=== PATIENT | male | born 1960 | race Caucasian/White ===

== ENCOUNTER 2021-10-13 12:52 | Inpatient (IN) | payer MEDICARE, OTHER ==
[~2021-10-13] VITALS: Ht 172.7 cm; Wt 77.1 kg
[2021-10-13] MEDS ORDERED: LORAZEPAM 2 MG/1 ML VIAL IM ONE (13:15)
--- NOTE | 2021-10-13 13:15 | NUR ---
pt restless, yelling, incomprehensible, requesting ativan. aware.
[2021-10-13] MEDS ORDERED: LORAZEPAM 2 MG/1 ML VIAL ONE (13:24)
--- NOTE | 2021-10-13 13:30 | NUR ---
First contact with pt. Received pt is room 3 pending medical clearance for admission to MHU. Pt is agitated and yelling out loud.
--- NOTE | 2021-10-13 13:35 | NUR ---
Called nursing chimney supervisor brick for 1:1 sitter as pt is on a 5150 Hold, no sitter available. Asked nursing chimney supervisor brick to call security for 1:1 observation if available.
[2021-10-13] MEDS ORDERED: OLANZAPINE 10 MG VIAL IM ONE ×2 (14:00→14:09)
[2021-10-13 14:07] LABS: MEAN CORPUSCULAR HEMOGLOBIN 28.8 uug (23.8-33.4); MEAN CORPUSCULAR VOLUME 84.1 fL (73.0-96.2); PLATELET COUNT (AUTO) 241 K/uL (152-348)
[2021-10-13 14:13] LABS: CARBON DIOXIDE 30 mmol/L (21-32); CHLORIDE 99 mmol/L (98-107); CREATININE 1.2 mg/dL (0.6-1.3); GLUCOSE 181 mg/dL (74-106); UREA NITROGEN, BLOOD 20 mg/dL (7-18)
--- NOTE | 2021-10-13 14:16 | NUR ---
PT ARRIVED WITH SUPPORT DBA, WITH ONLY THE 5150 HOLD; NO FURTHER INFO ON MED HX, NOR MEDS; PT HIMSELF IS A POOR HISTORIAN AT THIS TIME.
[2021-10-13 14:19] LABS: *BILIRUBIN,URIN 1+ (NEGATIVE); *BLOOD, URINE NEGATIVE (NEGATIVE); *CLARITY,URINE CLEAR (CLEAR); *COLOR,URINE YELLOW (YELLOW); *KETONES,URINE 1+ (NEGATIVE); *UROBILINOGEN,URINE 0.2 E.U./dl (NORMAL); LEUKOCYTE ESTERASE ,URINE NEGATIVE (NEGATIVE); NITRITE, URINE NEGATIVE (NEGATIVE); PH,URINE 5.5 (5.0-8.0); UGLUCOSE NEGATIVE (NEGATIVE)
[2021-10-13 14:21] LABS: ALANINE AMINOTRANSFERASE 35 U/L (16-63); ALKALINE PHOSPHATASE 73 U/L (50-136); ASPARTATE AMINOTRANSFERASE 14 U/L (15-37); BILIRUBIN,DIRECT 0.2 mg/dL (0.0-0.2); BILIRUBIN,TOTAL 0.6 mg/dL (0.2-1.0); TOTAL PROTEIN, SERUM 6.8 g/dL (6.4-8.2)
[2021-10-13 14:22] LABS: ETHANOL < 3 MG/DL (0-0)
[2021-10-13 14:23] LABS: ACETAMINOPHEN < 2.0 ug/mL (10-30)
[2021-10-13 14:26] LABS: *AMPHETAMINE, URINE NEGATIVE (NEGATIVE); *CANNABINOID, URINE NEGATIVE (NEGATIVE); *COCCAINE, URINE NEGATIVE (NEGATIVE); *OPIATE, URINE NEGATIVE (NEGATIVE); *PHENCYCLIDINE SCREEN,URINE NEGATIVE (NEGATIVE)
[2021-10-13 14:43] LABS: THYROID STIMULATING HORMONE 0.337 mIU/mL (0.358-3.740)
--- NOTE | 2021-10-13 14:48 | NUR ---
Pt to CT via YUE galvan noted.
--- NOTE | 2021-10-13 15:40 | NUR ---
Per pt is medically clear for admission to MHU. SBAR report given to Jose M in MHU via telephone.
[2021-10-13] MEDS ORDERED: POTASSIUM BICARBONATE/CIT AC 25 MEQ TABLET.EFF PO ONE (16:00)
--- NOTE | 2021-10-13 16:05 | NUR ---
Pt trans to MHU, NAD noted.
[2021-10-13] MEDS ORDERED: POTASSIUM BICARBONATE/CIT AC 25 MEQ TABLET.EFF ONE (16:07)
--- NOTE | 2021-10-13 16:20 | NUR ---
GPS: Nursing Notes: Admitting Notes: Patient is admitting to MHU on 5150 DTS & GD due to endorsing suicidal ideations, reports not eating and sleeping for several days, noncompliance with psychotic medications, unable to verbalize plan for safety and/or self care: food, clothing and/or [place] [facility]. On face to face assessment, patient is A/Ox2, labile, loud and pressured speech at times, depressed mood and angry affect, gets easily irritable when questioned by staff, poor historian, unable to formulate a viable plan for self care, denies SI/HI, unkempt appearance, poor grooming, oriented to the unit, admitting package given to the patient, continue to monitor for safety, Dr. De La Rosa and Dr. Shannon informed of admission, continue with treatment plan.
[2021-10-13] MEDS ORDERED: MAGNESIUM HYDROXIDE 30 ML LIQUID UDC PO PRN (16:45)
[2021-10-13] MEDS ORDERED: MAG HYDROX/AL HYDROX/SIMETH 30 ML LIQUID UDC PO PRN (16:45)
[2021-10-13] MEDS ORDERED: BLOOD SUGAR DIAGNOSTIC 1 EACH STRIP VI ONE (16:45)
[2021-10-13 22:10] VITALS: BP 114/58
[2021-10-14 06:41] LABS: HEMATOCRIT 37.1 % (36.7-47.1); MEAN CORPUSCULAR HEMOGLOBIN 29.2 uug (23.8-33.4); MEAN CORPUSCULAR VOLUME 84.4 fL (73.0-96.2); PLATELET COUNT (AUTO) 216 K/uL (152-348)
[2021-10-14] MEDS: CLONAZEPAM 0.5 MG TABLET PO PRN ×2 (07:26→15:19)
[2021-10-14 07:30] LABS: BILIRUBIN,TOTAL 0.6 mg/dL (0.2-1.0); MAGNESIUM 2.3 mg/dL (1.8-2.4); PHOSPHOROUS 3.1 mg/dL (2.5-4.9); POTASSIUM 3.5 mmol/L (3.5-5.1); TOTAL PROTEIN, SERUM 6.5 g/dL (6.4-8.2)
[2021-10-14 07:53] VITALS: BP 145/105
[2021-10-14 08:01] LABS: THYROID STIMULATING HORMONE 0.345 mIU/mL (0.358-3.740)
[2021-10-14] MEDS: OLANZAPINE 5 MG TABLET PO SCH ×2 (10:14→17:59)
[2021-10-14] MEDS: DIVALPROEX SPRINKLE 125 MG CAP.SPRINK PO SCH ×2 (10:14→20:53)
[2021-10-14] MEDS: PAROXETINE HCL 10 MG TABLET PO SCH (10:14)
[2021-10-14 15:16] VITALS: BP 156/88
[2021-10-14] MEDS ORDERED: MIRT-94 PO (17:19)
[2021-10-14] MEDS ORDERED: RISP4TAB4 PO (17:19)
[2021-10-14] MEDS ORDERED: FURO40TA5 PO (17:19)
[2021-10-14] MEDS ORDERED: ESCI20TA PO (17:19)
[2021-10-14] MEDS ORDERED: SITA100T PO (17:19)
[2021-10-14] MEDS ORDERED: AMLO10TA59 PO (17:19)
[2021-10-14] MEDS ORDERED: METF-442 PO (17:19)
[2021-10-14] MEDS ORDERED: BUSP15TA3 PO (17:19)
--- NOTE | 2021-10-14 18:17 | NUR ---
GPS: Nursing Notes: Destructive Behavior To Self: Patient is awake and responding to his name, poor impulse control, overly disruptive by constantly shouting, yelling, making bizarre noises when pacing on the hallway, gets easily anxious when questioned by staff, poor grooming, unkempt appearance, A/Ox2-3, resistant with nursing care, unable to formulate a viable plan for self care, continue with treatment plan.
[2021-10-14 20:09] VITALS: BP 142/78
[2021-10-15] MEDS: CLONAZEPAM 0.5 MG TABLET PO PRN ×2 (05:32→10:53)
--- NOTE | 2021-10-15 05:33 | NUR ---
PATIENT WAS NOTED PACING THE HALLWAY, MAKING BIZARRE NOISES, ANXIOUS AND UNABLE TO CALM HIMSELF DOWN. PATIENT WAS GIVEN CLONAZEPAM 0.5 MG PO PRN. WILL CONTINUE TO MONITOR.
--- NOTE | 2021-10-15 06:30 | NUR ---
patient was able to calm down after klonopine 0.5mg PO PRN. he noted in his bed resting. PO PRN was effective . will continue to monitor.
[2021-10-15 07:30] VITALS: BP 149/89
[2021-10-15] MEDS: FUROSEMIDE 40 MG TABLET PO SCH (09:03)
[2021-10-15] MEDS: DIVALPROEX SPRINKLE 125 MG CAP.SPRINK PO SCH ×2 (09:03→21:07)
[2021-10-15] MEDS: AMLODIPINE 10 MG TABLET PO SCH (09:04)
[2021-10-15] MEDS: OLANZAPINE 5 MG TABLET PO SCH ×2 (09:04→17:08)
[2021-10-15] MEDS: METFORMIN HCL 500 MG TABLET PO SCH ×2 (09:04→17:08)
[2021-10-15] MEDS: LINAGLIPTIN 5 MG TABLET PO SCH (09:04)
[2021-10-15] MEDS: PAROXETINE HCL 10 MG TABLET PO SCH (09:50)
--- NOTE | 2021-10-15 10:46 | NUR ---
MANUELA Initial Discharge Note: Per 5150 hold, pt is admitted to [facility] due to suicidal ideation, agitation, paranoia and not sleeping for several days. Per pt, pt is unaware if he wishes to return to his apartment where he resides alone [address] [place] [address] or be discharged to a half-way facility recommended by pt's MD. MANUELA contacted pt's sister, Leeanna and the number was disconnected. MANUELA will continue to work with pt, family and MD to ensure a safe and proper discharge plan for the pt.
--- NOTE | 2021-10-15 10:46 | NUR ---
MANUELA Admit Source: Per 5150 hold, pt is admitted to [facility] due to suicidal ideation, agitation, paranoia and not sleeping for several days. Per pt, pt is unaware if he wishes to return to his apartment where he resides alone [address] [place] [address] or be discharged to a long-term facility recommended by pt's MD. MANUELA contacted pt's sister, Leeanna and the number was disconnected. MANUELA will continue to work with pt, family and MD to ensure a safe and proper discharge plan for the pt.
--- NOTE | 2021-10-15 10:50 | NUR ---
Firearms Report: Toe Laster completed and submitted a [employer] firearms report for 5150 a danger to himself and grave disability certifications. A copy of report has been placed in patient chart.
--- NOTE | 2021-10-15 11:09 | NUR ---
Patient is given Klonopin 0.5 mg for anxiety at 10:53am. Patient is pacing in the hallway, whining and crying, hyperverbal, restless, and agitated.
--- NOTE | 2021-10-15 15:55 | NUR ---
Received patient sleeping in his room. A/O X 2 to person, place. Pt. verbalizes being very anxious, pacing in the hallway, crying and whining. Pt. does not interact with others, isolative, and depressed. Compliant with medications. Ambulates without assistance. Self care. Pt. is encourage to vent feelings and emotions. Fall and safety precautions implemented.
[2021-10-15 16:00] VITALS: BP 137/79
[2021-10-15 20:00] VITALS: BP 121/69
--- NOTE | 2021-10-15 20:30 | NUR ---
RECEIVED PATIENT IN HIS ROOM IN BED. HE IS NOTED AWAKE A/O X 3. HE APPEARS DEPRESSED. MOOD IS LOW AFFECT IS BLUNTED. HE APPEARS TO RESPOND TO INTERNAL STIMULI. HE IS ALSO NOTED ISOLATIVE AND WITHDRAWN. HE DENIED SI/HI/VH/AH. HE IS A POOR HISTORIAN. HE IS REASSURED FOR HIS SAFETY. SAFETY, AND FALL PRECAUTION ARE IN PLACE. V/S STABLE. PATIENT WAS OFFERED PO FLUIDS AND SNACKS BUT HE REFUSED. HE CONTINUE COMPLIANT WITH MEDICATION REGIMENT AT THIS TIME. WILL CONTINUE TO MONITOR.
[2021-10-16] MEDS: TEMAZEPAM 7.5 MG CAPSULE PO PRN ×2 (01:46→23:41)
[2021-10-16] MEDS: CLONAZEPAM 0.5 MG TABLET PO PRN ×2 (06:14→14:04)
[2021-10-16] MEDS: ACETAMINOPHEN 325 MG TABLET PO PRN (06:28)
--- NOTE | 2021-10-16 06:28 | NUR ---
PATIENT NOTED PACING THE HALLWAY, MUMBLING, ANXIOUS AND UNABLE TO CALM DOWN. HE WAS NOTED APOLOGETIC "I AM BOTHERING OTHER PATIENT". HE WAS REASSURED AND HE WAS GIVEN CLONAZEPAM 0.5MG PO PRN FOR ANXIETY AGITATION. HE WAS ALSO GIVEN TYLENOL 650MG PO PRN FOR SORE SHOULDER. WILL CONTINUE TO MONITOR.
[2021-10-16 07:30] VITALS: BP 142/82
[2021-10-16] MEDS: LINAGLIPTIN 5 MG TABLET PO SCH (08:18)
[2021-10-16] MEDS: PAROXETINE HCL 10 MG TABLET PO SCH (08:18)
[2021-10-16] MEDS: METFORMIN HCL 500 MG TABLET PO SCH ×2 (08:18→17:29)
[2021-10-16] MEDS: DIVALPROEX SPRINKLE 125 MG CAP.SPRINK PO SCH ×2 (08:18→21:23)
[2021-10-16] MEDS: FUROSEMIDE 40 MG TABLET PO SCH (08:19)
[2021-10-16] MEDS: AMLODIPINE 10 MG TABLET PO SCH (08:19)
[2021-10-16] MEDS: OLANZAPINE 2.5 MG TABLET PO SCH ×2 (08:23→17:29)
--- NOTE | 2021-10-16 14:55 | NUR ---
Received patient sleeping in his room. A/O X 2 -3 to person, place. Pt. is anxious, Klonopin 0.5 mg was given at 14:05. Pt. is isolative, withdrawn, makes bizarre sounds, cries while pacing in the hallway. Compliant with medications. Requires minimal assistance with ADL. Pt. needs to be redirected. Emotional support given. Fall and safety precautions implemented.
[2021-10-16 16:23] VITALS: BP 137/63
[2021-10-16] MEDS: ENSURE WITH FIBER 237 ML LIQUID (CHOCOLATE) PO SCH (18:04)
[2021-10-16 20:00] VITALS: BP 140/88
[2021-10-17] MEDS: CLONAZEPAM 0.5 MG TABLET PO PRN (04:09)
[2021-10-17] MEDS ORDERED: CLONAZEPAM 0.5 MG TABLET PO STA (07:26)
[2021-10-17 07:33] VITALS: BP 135/95
[2021-10-17] MEDS: PAROXETINE HCL 10 MG TABLET PO SCH (08:55)
[2021-10-17] MEDS: METFORMIN HCL 500 MG TABLET PO SCH ×2 (08:56→17:13)
[2021-10-17] MEDS: FUROSEMIDE 40 MG TABLET PO SCH (08:56)
[2021-10-17] MEDS: DIVALPROEX SPRINKLE 125 MG CAP.SPRINK PO SCH ×2 (08:56→20:16)
[2021-10-17] MEDS: OLANZAPINE 2.5 MG TABLET PO SCH ×2 (08:56→17:13)
[2021-10-17] MEDS: LINAGLIPTIN 5 MG TABLET PO SCH (08:56)
[2021-10-17] MEDS: AMLODIPINE 10 MG TABLET PO SCH (08:57)
[2021-10-17] MEDS: ENSURE WITH FIBER 237 ML LIQUID (CHOCOLATE) PO SCH (09:39)
--- NOTE | 2021-10-17 14:34 | NUR ---
Received patient pacing in the hallway, extremely anxious, whining, crying, making weird noises. Klonopin 0.5 mg was given as PRN around 10:00 to give only once, since pt. had received the same medication 2 hours prior as scheduled. Pt. is cooperative with care and compliant with medications. Active listening provided. Denies SI/HI AH/VH. Fall and safety precautions implemented.
[2021-10-17 16:33] VITALS: BP 125/85
[2021-10-17 20:01] VITALS: BP 119/68
[2021-10-17] MEDS: CLONAZEPAM 1 MG TABLET PO PRN (20:16)
[2021-10-17] MEDS: TEMAZEPAM 7.5 MG CAPSULE PO PRN (23:39)
[2021-10-18] MEDS: ACETAMINOPHEN 325 MG TABLET PO PRN (00:11)
[2021-10-18] MEDS: CLONAZEPAM 1 MG TABLET PO PRN ×3 (05:42→20:38)
--- NOTE | 2021-10-18 05:49 | NUR ---
This patient was up and down during the night. Anxious, pacing the halls, making noises and requesting to be put in a seclusion room. This typewriter assembly and parts inspector tried multiple times to calm the patient, offered redirection, encouraged him to take a shower but he refused. PRN medication was provided when needed. Total sleep hours were 6.00. This patient is unable to engage in meaningful conversation and struggles to let his needs known. Safety Stratiges are in place.
[2021-10-18] MEDS: DIVALPROEX SPRINKLE 125 MG CAP.SPRINK PO SCH ×2 (08:33→20:38)
[2021-10-18] MEDS: METFORMIN HCL 500 MG TABLET PO SCH ×2 (08:34→17:30)
[2021-10-18] MEDS: FUROSEMIDE 40 MG TABLET PO SCH (08:34)
[2021-10-18] MEDS: LINAGLIPTIN 5 MG TABLET PO SCH (08:34)
[2021-10-18] MEDS: OLANZAPINE 2.5 MG TABLET PO SCH ×2 (08:34→16:17)
[2021-10-18] MEDS: PAROXETINE HCL 10 MG TABLET PO SCH (08:34)
[2021-10-18] MEDS: AMLODIPINE 10 MG TABLET PO SCH (08:34)
--- NOTE | 2021-10-18 14:36 | NUR ---
GPS: Nursing Notes: Thought Disorder: Patient is awake and responding to his name, poor impulse control, constantly shouting bizarre voices when pacing in the hallway, redirected, but stated that he does not know why he is shouting, then stated "I am anxious inside...I am afraid.. I don't know what to do..", medicated with Klonopin PO PRN per MD order, setting limits, but poor anger management, gets easily anxious when redirected, unable to formulate a viable plan for self care, continue to monitor for safety, continue with treatment plan.
[2021-10-18 16:50] VITALS: BP 124/72
[2021-10-18 20:00] VITALS: BP 123/84
[2021-10-19] MEDS: CLONAZEPAM 1 MG TABLET PO PRN (07:37)
[2021-10-19 07:45] VITALS: BP 147/71
[2021-10-19 08:16] LABS: POTASSIUM 3.7 mmol/L (3.5-5.1)
[2021-10-19] MEDS: LINAGLIPTIN 5 MG TABLET PO SCH (08:43)
[2021-10-19] MEDS: AMLODIPINE 10 MG TABLET PO SCH (08:44)
[2021-10-19] MEDS: FUROSEMIDE 40 MG TABLET PO SCH (08:44)
[2021-10-19] MEDS: METFORMIN HCL 500 MG TABLET PO SCH ×2 (08:44→17:33)
[2021-10-19] MEDS: PAROXETINE HCL 10 MG TABLET PO SCH (08:44)
[2021-10-19] MEDS: DIVALPROEX SPRINKLE 125 MG CAP.SPRINK PO SCH ×2 (08:44→20:43)
[2021-10-19] MEDS: OLANZAPINE 2.5 MG TABLET PO SCH ×2 (08:44→16:04)
--- NOTE | 2021-10-19 14:26 | NUR ---
GPS: Nursing Notes: Thought Disorder: Patient is awake and responding to his name, episodes of shouting when pacing in the hallway, resistant with nursing care, stated that he is doing it because he is afraid and anxious, unkempt appearance, gets easily anxious when redirected, unable to formulate a viable plan for self care, continue to monitor for safety, continue with treatment plan.
[2021-10-19 16:15] VITALS: BP 137/92
[2021-10-19 20:00] VITALS: BP 142/82
[2021-10-19] MEDS ORDERED: OLANZAPINE 2.5 MG TABLET PO SCH (21:00)
[2021-10-20] MEDS: OLANZAPINE 5 MG TABLET PO SCH ×3 (00:20→20:07)
[2021-10-20] MEDS: CLONAZEPAM 1 MG TABLET PO PRN (00:20)
[2021-10-20 07:40] VITALS: BP 132/94
[2021-10-20] MEDS: METFORMIN HCL 500 MG TABLET PO SCH ×2 (08:13→17:05)
[2021-10-20] MEDS: FUROSEMIDE 40 MG TABLET PO SCH (08:14)
[2021-10-20] MEDS: LINAGLIPTIN 5 MG TABLET PO SCH (08:14)
[2021-10-20] MEDS: PAROXETINE HCL 20 MG TABLET PO SCH (08:14)
[2021-10-20] MEDS: DIVALPROEX SPRINKLE 125 MG CAP.SPRINK PO SCH ×2 (08:14→20:08)
[2021-10-20] MEDS: AMLODIPINE 10 MG TABLET PO SCH (08:14)
[2021-10-20] MEDS: GABAPENTIN 300 MG CAPSULE PO SCH ×3 (09:41→17:05)
[2021-10-20] MEDS: ACETAMINOPHEN 325 MG TABLET PO PRN (10:16)
--- NOTE | 2021-10-20 13:28 | NUR ---
GPS: Nursing Notes: Thought Disorder: Patient is awake and responding to his name, poor impulse control, disruptive by constantly shouting when pacing in the hallway, stated "I don't know why I do this... I cannot control it..", denies SI/HI, denies AH/VH, redirected during shift, setting limits, unable to formulate a viable plan for self care, unkempt appearance, resistant with nursing care, continue to monitor for safety, continue with treatment plan.
[2021-10-20 16:15] VITALS: BP 126/82
[2021-10-20 20:07] VITALS: BP 134/76
--- NOTE | 2021-10-21 06:18 | NUR ---
GPS: Patient awake at 0545, starts to mumble and pace in the hallway, patient stating "something is inside my head" patient continue to pace back and forth in the hallway and in the room. Diversion rendered, patient sat in the day room, but still restless and chanting words. Patients able to respond appropriately when asked. Keeps talking to himself. Patient offered shower but refused. offered 3x and still refused. patient asked for snacks and water. Patient continue to be restless. will refer to MD for prn order for anxiety
[2021-10-21] MEDS: OLANZAPINE 5 MG TABLET PO SCH ×2 (08:33→20:00)
[2021-10-21] MEDS: METFORMIN HCL 500 MG TABLET PO SCH ×2 (08:33→17:11)
[2021-10-21] MEDS: DIVALPROEX SPRINKLE 125 MG CAP.SPRINK PO SCH ×2 (08:33→20:00)
[2021-10-21] MEDS: PAROXETINE HCL 20 MG TABLET PO SCH (08:33)
[2021-10-21] MEDS: FUROSEMIDE 40 MG TABLET PO SCH (08:33)
[2021-10-21] MEDS: LINAGLIPTIN 5 MG TABLET PO SCH (08:33)
[2021-10-21] MEDS: GABAPENTIN 300 MG CAPSULE PO SCH ×3 (08:33→17:11)
[2021-10-21] MEDS: AMLODIPINE 10 MG TABLET PO SCH (08:47)
[2021-10-21 09:18] VITALS: BP 137/87
[2021-10-21] MEDS: ACETAMINOPHEN 325 MG TABLET PO PRN (11:58)
--- NOTE | 2021-10-21 13:23 | NUR ---
GPS: Nursing Notes: Thought Disorder: Patient is awake and responding to his name, poor impulse control, gets easily anxious when redirected, shouting bizarre voices when asked stated "I don't know.. I am anxious and afraid.. I cannot control it..", but after he takes his medications, he goes to sleep and becomes isolative and withdrawn, poor grooming, unkempt appearance, resistant with nursing care, unable to formulate a viable plan for self care, refusing to take a shower, continue to monitor for safety, continue with treatment plan.
[2021-10-21] MEDS ORDERED: CLONAZEPAM 1 MG TABLET PO ONE (15:15)
[2021-10-21 16:00] VITALS: BP 135/79
[2021-10-21 19:58] VITALS: BP 132/68
[2021-10-21] MEDS: TEMAZEPAM 7.5 MG CAPSULE PO PRN (20:44)
--- NOTE | 2021-10-22 06:50 | NUR ---
gps; thought process: patient awake at 4AM. started to make crying noises, blabbering word, redirect patient in the room, patient agitated and restlessness noted to be increasing, patient stated "there's something wrong with me" patient hyperverbal, patient re- orient to reality, patient able to answer and respond to conversation, however switch back to being hyperverbal and restless, going in out of room and in the hallway. patient took shower and put on new clean clothes. Continue to be restless and agitated, stayed with patient to keep safe. patient impulse control poor. will refer to
[2021-10-22 07:30] VITALS: BP 114/86
[2021-10-22] MEDS: METFORMIN HCL 500 MG TABLET PO SCH ×2 (07:43→17:18)
[2021-10-22] MEDS: AMLODIPINE 10 MG TABLET PO SCH (08:05)
[2021-10-22] MEDS: FUROSEMIDE 40 MG TABLET PO SCH (08:05)
[2021-10-22] MEDS: OLANZAPINE 5 MG TABLET PO SCH ×2 (08:06→20:17)
[2021-10-22] MEDS: GABAPENTIN 300 MG CAPSULE PO SCH ×3 (08:06→17:17)
[2021-10-22] MEDS: LINAGLIPTIN 5 MG TABLET PO SCH (08:06)
[2021-10-22] MEDS: PAROXETINE HCL 20 MG TABLET PO SCH (08:08)
[2021-10-22] MEDS: DIVALPROEX 500 MG TABLET.DR PO SCH ×2 (08:17→20:16)
--- NOTE | 2021-10-22 14:40 | NUR ---
GPS: PT COURT HEARING DONE TODAY. 14 DAY HOLD PROBABLE CAUSE IS GRAVE DISABILITY.
[2021-10-22 16:00] VITALS: BP 131/77
--- NOTE | 2021-10-22 16:08 | NUR ---
Patient is received awake in his room. A/O X 3 to person, place. Pt. is anxious, pacing in the hallway, crying, whining, asking for snacks constantly, restless. Compliant with medications. Ambulates independently. Pt. is encourage to vent feelings and emotions. Fall and safety precautions implemented.
[2021-10-22] MEDS: TEMAZEPAM 7.5 MG CAPSULE PO PRN (23:05)
--- NOTE | 2021-10-23 05:53 | NUR ---
Patient slept only 1 hour. PRN Restoril was given with zero effect. The patient was loud, pacing the halls, unable to redirect and disruptive to the unit. Multiple attempts made to distract, reason and reassure the patient were unsuccessful. The patient is very anxious and unable to verbalize his feelings or thoughts. The whole shift was continuos whining noises, poor impulse control and minimal insight as to his behavior. Clearly unable to control himself for more than a minute or two. Safety Stratiges in place at this time.
[2021-10-23 07:30] VITALS: BP 130/89
[2021-10-23] MEDS: PAROXETINE HCL 20 MG TABLET PO SCH (08:01)
[2021-10-23] MEDS: DIVALPROEX 500 MG TABLET.DR PO SCH ×2 (08:01→20:17)
[2021-10-23] MEDS: OLANZAPINE 5 MG TABLET PO SCH (08:02)
[2021-10-23] MEDS: FUROSEMIDE 40 MG TABLET PO SCH (08:02)
[2021-10-23] MEDS: GABAPENTIN 300 MG CAPSULE PO SCH ×3 (08:02→17:13)
[2021-10-23] MEDS: METFORMIN HCL 500 MG TABLET PO SCH ×2 (08:03→17:13)
[2021-10-23] MEDS: LINAGLIPTIN 5 MG TABLET PO SCH (08:03)
[2021-10-23] MEDS: AMLODIPINE 10 MG TABLET PO SCH (08:03)
--- NOTE | 2021-10-23 15:38 | NUR ---
Received patient pacing in the hallway, very anxious, hyperventilating, crying, whining, and asking for help. Patient was given his scheduled medications and after an hour he calmed down. Patient is redirectable. Self care. Denies SI/HI AH/VH. Active listening provided. Fall and safety precautions implemented.
[2021-10-23 16:00] VITALS: BP 101/66
[2021-10-23 20:00] VITALS: BP 138/75
[2021-10-23] MEDS ORDERED: MIRTAZAPINE 15 MG TABLET PO SCH (21:00)
--- NOTE | 2021-10-24 04:32 | NUR ---
Patient has been up most of the night making the same loud noises and pacing up and down the [place] disrupting the unit. No redirection possible and no impulse control. No medications for anxiety or sleep ordered at this time. The patient is unable to verbalize his feelings and walks away quickly whenever spoken to. Safety stratiges remain in place. No improvement noted from the previous shifts.
[2021-10-24 07:45] VITALS: BP 130/77
[2021-10-24] MEDS: LINAGLIPTIN 5 MG TABLET PO SCH (08:23)
[2021-10-24] MEDS: METFORMIN HCL 500 MG TABLET PO SCH ×2 (08:23→17:15)
[2021-10-24] MEDS: DIVALPROEX 500 MG TABLET.DR PO SCH ×2 (08:23→20:21)
[2021-10-24] MEDS: GABAPENTIN 300 MG CAPSULE PO SCH ×3 (08:23→20:20)
[2021-10-24] MEDS: FUROSEMIDE 40 MG TABLET PO SCH (08:23)
[2021-10-24] MEDS: AMLODIPINE 10 MG TABLET PO SCH (08:27)
[2021-10-24] MEDS ORDERED: OLANZAPINE 5 MG TABLET PO SCH (09:00)
--- NOTE | 2021-10-24 14:55 | NUR ---
Received patient awake in the hallway, anxious, pacing, restless, agitated, unable to calm down. Pt. is offered breathing exercises, hot tea, quiet time, pt. refuses it. Compliant with medications. Ambulates independently. Denies SI/HI AH/VH. Reassurance given. Fall and safety precautions implemented.
[2021-10-24 17:23] VITALS: BP 132/76
[2021-10-24 20:19] VITALS: BP 139/77
[2021-10-24] MEDS: MIRTAZAPINE 15 MG TABLET PO SCH (20:20)
[2021-10-24] MEDS: ACETAMINOPHEN 325 MG TABLET PO PRN (21:03)
[2021-10-25] MEDS ORDERED: diphenhydrAMINE 50 MG/1 ML VIAL IM ONE (03:30)
[2021-10-25] MEDS ORDERED: HALOPERIDOL LACTATE 5 MG/1 ML VIAL IM ONE (03:30)
[2021-10-25] MEDS ORDERED: LORAZEPAM 2 MG/1 ML VIAL IM ONE (03:30)
--- NOTE | 2021-10-25 04:50 | NUR ---
GPS NOTE: This patient was out of control. Yelling, crying, banging his head on the wall. Impossible to redirect. Disruptive to the unit , unable to show any self control. Dr. Oden REGISTERED REPRESENTATIVE notified , orders received for a one time IM injection. No security or hands on needed. VS are stable. Patient tolerated it well. Patient has calmed down at this time. Safety Stratiges in place . Monitoring for further behavior escalation.
[2021-10-25 07:30] VITALS: BP 149/77
[2021-10-25] MEDS: FUROSEMIDE 40 MG TABLET PO SCH (08:11)
[2021-10-25] MEDS: LINAGLIPTIN 5 MG TABLET PO SCH (08:11)
[2021-10-25] MEDS: DIVALPROEX 500 MG TABLET.DR PO SCH ×2 (08:11→21:32)
[2021-10-25] MEDS: AMLODIPINE 10 MG TABLET PO SCH (08:12)
[2021-10-25] MEDS: GABAPENTIN 300 MG CAPSULE PO SCH ×3 (08:12→21:32)
[2021-10-25] MEDS: METFORMIN HCL 500 MG TABLET PO SCH ×2 (08:12→17:37)
[2021-10-25] MEDS ORDERED: GABAPENTIN 300 MG CAPSULE PO SCH (13:00)
--- NOTE | 2021-10-25 14:12 | NUR ---
Patient pace up and down on hallway, showered, took morning medication. Cooperative at this time. Spoke with patient mother today, up date provided to Mother per Patient. Will continue to monitor.
[2021-10-25] MEDS: CLONAZEPAM 1 MG TABLET PO PRN (15:15)
[2021-10-25 16:00] VITALS: BP 104/63
[2021-10-25] MEDS: ACETAMINOPHEN 325 MG TABLET PO PRN (16:52)
--- NOTE | 2021-10-25 17:02 | NUR ---
Patient of feet pain, 5/10, aching , Tylenol given as ordered, patient does not remember taking it, also lotion applied to feet dryness, no open wound noted. Encourage patient wear tennis shoes for support when walking. Will continue to monitor.
[2021-10-25 20:00] VITALS: BP 143/76
[2021-10-25] MEDS: MIRTAZAPINE 15 MG TABLET PO SCH (21:33)
[2021-10-26] MEDS: CLONAZEPAM 1 MG TABLET PO PRN (05:00)
[2021-10-26] MEDS: METFORMIN HCL 500 MG TABLET PO SCH ×2 (08:10→17:05)
[2021-10-26] MEDS: LINAGLIPTIN 5 MG TABLET PO SCH (08:10)
[2021-10-26] MEDS: DIVALPROEX 500 MG TABLET.DR PO SCH ×2 (08:10→21:34)
[2021-10-26 08:11] VITALS: BP 121/70
[2021-10-26] MEDS: GABAPENTIN 300 MG CAPSULE PO SCH ×3 (08:11→21:34)
[2021-10-26] MEDS: FUROSEMIDE 40 MG TABLET PO SCH (08:11)
[2021-10-26] MEDS: AMLODIPINE 10 MG TABLET PO SCH (08:12)
--- NOTE | 2021-10-26 15:44 | NUR ---
Received patient pacing in the hallway, restless, agitated, disoriented, mumbling, needy. A/O X 2 to person, place, environment. Patient is fixated on calling his Mom. Compliant with medications. Requires minimal assistance with ADL. Continent. Pt. is encourage to vent feelings and emotions. Denies SI/HI AH/VH. Fall and safety precautions implemented.
--- NOTE | 2021-10-26 16:44 | NUR ---
Wound consult requested for painful superficial cuts in the bottom of his feet since patient is diabetic.
[2021-10-26 16:59] VITALS: BP 123/72
[2021-10-26 20:10] VITALS: BP 101/64
[2021-10-26] MEDS: MIRTAZAPINE 15 MG TABLET PO SCH (21:34)
[2021-10-27] MEDS: CLONAZEPAM 1 MG TABLET PO PRN (04:30)
--- NOTE | 2021-10-27 04:31 | NUR ---
patient noted yelling at times, pacing the hallway and asking for toothpaste and toothbrush. Given redirection and reality check but ineffective. Clonazepam 1mg PO PRN was given. Will continue to monitor.
[2021-10-27] MEDS: METFORMIN HCL 500 MG TABLET PO SCH ×2 (08:00→17:15)
[2021-10-27 08:01] VITALS: BP 152/93
[2021-10-27] MEDS: DIVALPROEX 500 MG TABLET.DR PO SCH ×2 (08:01→20:32)
[2021-10-27] MEDS: LINAGLIPTIN 5 MG TABLET PO SCH (08:01)
[2021-10-27] MEDS: FUROSEMIDE 40 MG TABLET PO SCH (08:01)
[2021-10-27] MEDS: GABAPENTIN 300 MG CAPSULE PO SCH ×3 (08:01→20:34)
[2021-10-27] MEDS: AMLODIPINE 10 MG TABLET PO SCH (08:02)
--- NOTE | 2021-10-27 15:54 | NUR ---
Patient is received awake in the hallway, pacing, whining, crying, asking to leave the hospital. A/O X 2-3 to person, place. Pt. is needy, attention seeker, demanding, preoccupied, anxious, fixated on calling his Mom. Requires minimal assistance with ADL. Denies SI/HI AH/VH. Emotional support provided. Fall and safety precautions implemented.
[2021-10-27 16:09] VITALS: BP 105/62
[2021-10-27 20:13] VITALS: BP 118/64
[2021-10-27] MEDS: MIRTAZAPINE 15 MG TABLET PO SCH (20:34)
[2021-10-28] MEDS: hydrOXYzine HCL 25 MG TABLET PO PRN ×2 (01:54→07:18)
[2021-10-28 07:40] LABS: CREATININE 1.1 mg/dL (0.6-1.3); POTASSIUM 3.4 mmol/L (3.5-5.1)
[2021-10-28 08:00] VITALS: BP 136/87
[2021-10-28] MEDS: GABAPENTIN 300 MG CAPSULE PO SCH ×3 (09:10→20:25)
[2021-10-28] MEDS: DIVALPROEX 500 MG TABLET.DR PO SCH ×2 (09:10→20:26)
[2021-10-28] MEDS: LINAGLIPTIN 5 MG TABLET PO SCH (09:10)
[2021-10-28] MEDS: FUROSEMIDE 40 MG TABLET PO SCH (09:10)
[2021-10-28] MEDS: AMLODIPINE 10 MG TABLET PO SCH (09:10)
[2021-10-28] MEDS: METFORMIN HCL 500 MG TABLET PO SCH ×2 (09:10→17:21)
[2021-10-28] MEDS ORDERED: POTASSIUM CHLORIDE 20 MEQ TAB.PRT.SR PO ONE (09:15)
--- NOTE | 2021-10-28 10:09 | NUR ---
GPS: PT PACING IN AN OUT OF THE ROOM AND HALLWAY. PT DISRUPTIVE WITH OTHER STAFF. PT GOES BACK AND FORTH ASKING PSYCHIATRIST ALL QUESTIONS. PT STATED " I CANT CONTROL EVERYTHING". RE-DIRECTED PT BUT UNSUCCESSFUL. WILL CONTINUE TO RE-ORIENT AND REDIRECT PT. AM MEDS GIVEN AND TOLERATED WELL. DENIES ANY SI/HI.
[2021-10-28] MEDS: ACETAMINOPHEN 325 MG TABLET PO PRN (11:31)
--- NOTE | 2021-10-28 11:37 | NUR ---
WOUND CARE CONSULT: PT SEEN FOR CRACKING/FISSURES TO PLANTAR FEET. NO DRAINAGE NOTED BUT PT STATES FEET ARE TENDER. PT AMBULATING ALMOST CONSTANTLY. DPM CONSULT CALLED TO DR HAMPAPUR. BEARDEN IN AGREEMENT WITH PLAN OF CARE.
[2021-10-28] MEDS ORDERED: hydrOXYzine HCL 25 MG TABLET PO PRN (13:00)
[2021-10-28] MEDS ORDERED: hydrOXYzine HCL 25 MG TABLET PO SCH (13:00)
[2021-10-28] MEDS: VITAMINS A AND D OINT TP SCH (13:14)
[2021-10-28] MEDS: QUETIAPINE FUMARATE 25 MG TABLET PO SCH ×2 (13:24→17:21)
--- NOTE | 2021-10-28 15:49 | NUR ---
GPS: PT SEEN BY WOUND NURSE, ORDERED VIT A&D. APPLIED TO BOTH FEET. ENCOURAGED PT NOT TO WALK TO MUCH TO LESSEN THE PRESSURE ON HIS CRACKED SKIN ON BOTH FEET. FELT SOME PAIN ON PARTS OF FEET WHEN APPLYING THE CREAM, BUT PT TOLERATES IT. PT STILL SEEN PACING THE HALWAY AND FIXATED ABOUT USING TELEPHONE TO CALL HIS MOM.
[2021-10-28 16:46] VITALS: BP 126/86
[2021-10-28 20:08] VITALS: BP 118/81
[2021-10-28] MEDS: hydrOXYzine HCL 25 MG TABLET PO SCH (20:26)
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
[2021-10-29 07:30] VITALS: BP 146/92
[2021-10-29] MEDS ORDERED: LORAZEPAM 2 MG/1 ML VIAL IM ONE (07:45)
[2021-10-29] MEDS ORDERED: HALOPERIDOL LACTATE 5 MG/1 ML VIAL IM ONE (07:45)
[2021-10-29] MEDS ORDERED: diphenhydrAMINE 50 MG/1 ML VIAL IM ONE (07:45)
[2021-10-29] MEDS: GABAPENTIN 300 MG CAPSULE PO SCH ×3 (08:33→20:59)
[2021-10-29] MEDS: FUROSEMIDE 40 MG TABLET PO SCH (08:33)
[2021-10-29] MEDS: QUETIAPINE FUMARATE 25 MG TABLET PO SCH ×3 (08:33→16:55)
[2021-10-29] MEDS: LINAGLIPTIN 5 MG TABLET PO SCH (08:33)
[2021-10-29] MEDS: DIVALPROEX 500 MG TABLET.DR PO SCH ×2 (08:33→20:59)
[2021-10-29] MEDS: hydrOXYzine HCL 25 MG TABLET PO SCH ×4 (08:33→22:06)
[2021-10-29] MEDS: METFORMIN HCL 500 MG TABLET PO SCH ×2 (08:34→16:54)
[2021-10-29] MEDS: AMLODIPINE 10 MG TABLET PO SCH (08:34)
[2021-10-29] MEDS: VITAMINS A AND D OINT TP SCH (08:34)
[2021-10-29] MEDS ORDERED: VITAMINS A AND D OINT TP SCH (09:00)
[2021-10-29] MEDS ORDERED: UREA 20% CREAM 85 GM TUBE TP SCH (09:00)
--- NOTE | 2021-10-29 09:40 | NUR ---
GPS: PT WAS VERY RESTLESS AND AGITATED, PACING BACK AND FORTH IN HIS ROOM AND HALLWAY. PT VERY DISRUPTIVE WITH OTHER PT AND STAFF AND HAD AN EPISODE OF TOUCHING AND POKING OTHER PT EYES AND MOUTH. CALLED SANKET, SALES REPRESENTATIVE METALS AND ORDERED IM HALDOL, BENADRYL AND ATIVAN. ADMINISTERED IM TO PT AND TOLERATED WELL. WILL MONITOR
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
[2021-10-29 16:00] VITALS: BP 109/81
--- NOTE | 2021-10-29 18:11 | NUR ---
GPS: PT SEEN PACING IN AND OUT OF THE HALLWAY. PT QUIET BUT FIXATED ON USING THE WIRELESS PHONE. DENIES ANY PAIN OR DISCOMFORT. NOT IN DISTRESS AT THIS TIME.
[2021-10-29 20:00] VITALS: BP 126/74
[2021-10-29] MEDS ORDERED: hydrOXYzine HCL 25 MG TABLET ONE (22:10)
[2021-10-30] MEDS ORDERED: HALOPERIDOL LACTATE 5 MG/1 ML VIAL IM ONE (00:15)
[2021-10-30] MEDS ORDERED: LORAZEPAM 2 MG/1 ML VIAL IM ONE (00:15)
[2021-10-30] MEDS ORDERED: diphenhydrAMINE 50 MG/1 ML VIAL IM ONE (00:15)
--- NOTE | 2021-10-30 01:45 | NUR ---
Received patient at this start of the shift, restless, pacing up and down the [place], whining and extremely anxious. This patient has been with the same behavior every shift I have work with him. The patient is unable to be redirected, he is intrusive, and has no awareness of the situation around him. Despite multiple attempts to explain the impact that his non-stop yelling creates on the unit, the patient has no insight and just does not care. This report writer, as well as all the staff and even some of the other patients , have tried to get the patient to at least lower his voice. The patient has literally woke up many patients night after night. With all of the least restrictive means tried, this report writer called Dr. Oden , who ordered a IM injection. The patient was agreeable to it and even was encouraging the shot. No hands on needed for the shot at that time. The patient tolerated it well. VS were monitored and remained stable. It was 1 hour before the patient was able to calm down and rest. Safety stratiges are in place and no acute distress noted at this time.Continuing to monitor for behavior escalation.
[2021-10-30 07:30] VITALS: BP 138/74
[2021-10-30] MEDS: METFORMIN HCL 500 MG TABLET PO SCH ×2 (08:09→17:14)
[2021-10-30] MEDS: DIVALPROEX 500 MG TABLET.DR PO SCH ×2 (08:09→20:42)
[2021-10-30] MEDS: QUETIAPINE FUMARATE 25 MG TABLET PO SCH (08:09)
[2021-10-30] MEDS: LINAGLIPTIN 5 MG TABLET PO SCH (08:09)
[2021-10-30] MEDS: GABAPENTIN 300 MG CAPSULE PO SCH ×4 (08:10→20:42)
[2021-10-30] MEDS: FUROSEMIDE 40 MG TABLET PO SCH (08:10)
[2021-10-30] MEDS: AMLODIPINE 10 MG TABLET PO SCH (08:10)
[2021-10-30] MEDS: VITAMINS A AND D OINT TP SCH (08:15)
[2021-10-30] MEDS: hydrOXYzine HCL 25 MG TABLET PO SCH (08:17)
[2021-10-30] MEDS: SERTRALINE HCL 50 MG TABLET PO SCH ×2 (10:06→17:14)
--- NOTE | 2021-10-30 14:10 | NUR ---
The patient remained stable. Patient is complaint with meds. no distress noted. safety measures maintained. Endorsed to RICA Coronado for continuity of care.
--- NOTE | 2021-10-30 19:01 | NUR ---
GPS: PT COMPLIANT WITH MEDS AND CARE. PT DENIES ANY PAIN OR DISCOMFORT. PACING ON THE HALLWAY, TRYING TO CALL HIS MOTHER A LOT OF TIMES. PT WHEN NOT PACING THE HALLWAY AND FEELING ANXIOUS, STAYS IN THE ROOM AND HAD A NAP. COMPLIANT WITH CARE AND MEDS. ASSISTED PT TO BATHROOM PT WET HIS PANTS.
[2021-10-30 20:00] VITALS: BP 129/73
[2021-10-30] MEDS: QUETIAPINE FUMARATE 100 MG TABLET PO SCH (20:42)
[2021-10-30] MEDS: HYDROXYZINE PAMOATE 25 MG CAPSULE PO SCH (20:43)
[2021-10-31 07:30] VITALS: BP 138/86
[2021-10-31] MEDS: FUROSEMIDE 40 MG TABLET PO SCH (08:20)
[2021-10-31] MEDS: LINAGLIPTIN 5 MG TABLET PO SCH (08:21)
[2021-10-31] MEDS: AMLODIPINE 10 MG TABLET PO SCH (08:21)
[2021-10-31] MEDS: VITAMINS A AND D OINT TP SCH (08:21)
[2021-10-31] MEDS: METFORMIN HCL 500 MG TABLET PO SCH ×2 (08:21→17:01)
[2021-10-31] MEDS: DIVALPROEX 500 MG TABLET.DR PO SCH ×2 (08:21→21:06)
[2021-10-31] MEDS: GABAPENTIN 300 MG CAPSULE PO SCH ×4 (08:21→21:06)
[2021-10-31] MEDS: SERTRALINE HCL 50 MG TABLET PO SCH ×2 (08:21→16:50)
[2021-10-31 16:00] VITALS: BP 128/79
[2021-10-31 20:06] VITALS: BP 137/81
[2021-10-31] MEDS: HYDROXYZINE PAMOATE 25 MG CAPSULE PO SCH (21:06)
[2021-10-31] MEDS: QUETIAPINE FUMARATE 100 MG TABLET PO SCH (21:06)
[2021-11-01] MEDS: ACETAMINOPHEN 325 MG TABLET PO PRN ×2 (05:39→16:04)
[2021-11-01 08:11] VITALS: BP 139/81
[2021-11-01] MEDS: SERTRALINE HCL 50 MG TABLET PO SCH ×2 (08:27→16:04)
[2021-11-01] MEDS: LINAGLIPTIN 5 MG TABLET PO SCH (08:27)
[2021-11-01] MEDS: GABAPENTIN 300 MG CAPSULE PO SCH ×4 (08:27→20:32)
[2021-11-01] MEDS: FUROSEMIDE 40 MG TABLET PO SCH (08:27)
[2021-11-01] MEDS: METFORMIN HCL 500 MG TABLET PO SCH ×2 (08:27→17:36)
[2021-11-01] MEDS: AMLODIPINE 10 MG TABLET PO SCH (08:28)
[2021-11-01] MEDS: DIVALPROEX 500 MG TABLET.DR PO SCH ×2 (08:28→20:31)
[2021-11-01] MEDS: VITAMINS A AND D OINT TP SCH (08:28)
[2021-11-01] MEDS: risperiDONE 1 MG TABLET PO SCH ×2 (08:51→16:04)
[2021-11-01 16:13] VITALS: BP 129/60
[2021-11-01 20:00] VITALS: BP 106/59
[2021-11-01] MEDS: HYDROXYZINE PAMOATE 25 MG CAPSULE PO SCH (20:30)
[2021-11-01] MEDS: QUETIAPINE FUMARATE 100 MG TABLET PO SCH (20:32)
[2021-11-02] MEDS: METFORMIN HCL 500 MG TABLET PO SCH ×2 (07:20→16:49)
[2021-11-02] MEDS: ACETAMINOPHEN 325 MG TABLET PO PRN (07:20)
[2021-11-02] MEDS: LINAGLIPTIN 5 MG TABLET PO SCH (08:04)
[2021-11-02] MEDS: FUROSEMIDE 40 MG TABLET PO SCH (08:04)
[2021-11-02 08:05] VITALS: BP 129/79
[2021-11-02] MEDS: AMLODIPINE 10 MG TABLET PO SCH (08:05)
[2021-11-02] MEDS: risperiDONE 1 MG TABLET PO SCH ×2 (08:05→16:50)
[2021-11-02] MEDS: SERTRALINE HCL 50 MG TABLET PO SCH ×2 (08:05→16:50)
[2021-11-02] MEDS: GABAPENTIN 300 MG CAPSULE PO SCH ×4 (08:05→20:15)
[2021-11-02] MEDS: VITAMINS A AND D OINT TP SCH (08:07)
[2021-11-02] MEDS: DIVALPROEX 500 MG TABLET.DR PO SCH ×2 (08:07→20:17)
--- NOTE | 2021-11-02 16:03 | NUR ---
patient is alert and oriented x2 ,pacing back and forth in hallway ,mumbling restless constantly asked phone to his mom. unable to sit still .took all medication ,able to follow re-direction ,will continue close monitoring.
[2021-11-02 16:15] VITALS: BP 148/84
[2021-11-02 19:35] VITALS: BP 104/61
[2021-11-02] MEDS: QUETIAPINE FUMARATE 100 MG TABLET PO SCH (20:15)
[2021-11-02] MEDS: HYDROXYZINE PAMOATE 25 MG CAPSULE PO SCH (20:15)
[2021-11-03 08:00] VITALS: BP 152/81
[2021-11-03] MEDS: LINAGLIPTIN 5 MG TABLET PO SCH (08:03)
[2021-11-03] MEDS: METFORMIN HCL 500 MG TABLET PO SCH ×2 (08:03→16:42)
[2021-11-03] MEDS: risperiDONE 1 MG TABLET PO SCH ×2 (08:07→16:41)
[2021-11-03] MEDS: FUROSEMIDE 40 MG TABLET PO SCH (08:08)
[2021-11-03] MEDS: GABAPENTIN 300 MG CAPSULE PO SCH ×4 (08:08→20:44)
[2021-11-03] MEDS: SERTRALINE HCL 50 MG TABLET PO SCH ×2 (08:08→16:42)
[2021-11-03] MEDS: AMLODIPINE 10 MG TABLET PO SCH (08:09)
[2021-11-03] MEDS: DIVALPROEX 500 MG TABLET.DR PO SCH ×2 (08:10→20:47)
[2021-11-03] MEDS: VITAMINS A AND D OINT TP SCH (08:11)
[2021-11-03 16:48] VITALS: BP 106/59
[2021-11-03 19:57] VITALS: BP 126/64
[2021-11-03] MEDS: QUETIAPINE FUMARATE 100 MG TABLET PO SCH (20:44)
[2021-11-03] MEDS: HYDROXYZINE PAMOATE 25 MG CAPSULE PO SCH (20:44)
--- NOTE | 2021-11-04 06:45 | NUR ---
PATIENT SLEPT FOR APPROC
--- NOTE | 2021-11-04 06:45 | NUR ---
PATIENT SLEPT FOR APPROX. 8 HRS THROUGH THE NIGHT. HE WOKE UP AT APPROX 4.30AM ANS WAS NOTED ANXIOUS, HYPERVERBAL AND PACING AT TIME IN THE HALLWAY. PATIENT IS SOMEWHAT REDIRECTABLE AND MANAGEABLE. WILL CONTINUE TO MONITOR.
[2021-11-04 07:30] VITALS: BP 142/84
[2021-11-04] MEDS: ACETAMINOPHEN 325 MG TABLET PO PRN ×2 (08:06→17:25)
[2021-11-04] MEDS: METFORMIN HCL 500 MG TABLET PO SCH ×2 (08:06→17:25)
[2021-11-04] MEDS: DIVALPROEX 500 MG TABLET.DR PO SCH ×2 (08:09→21:22)
[2021-11-04] MEDS: FUROSEMIDE 40 MG TABLET PO SCH (08:09)
[2021-11-04] MEDS: risperiDONE 1 MG TABLET PO SCH ×2 (08:09→17:25)
[2021-11-04] MEDS: GABAPENTIN 300 MG CAPSULE PO SCH ×4 (08:10→20:18)
[2021-11-04] MEDS: LINAGLIPTIN 5 MG TABLET PO SCH (08:10)
[2021-11-04] MEDS: AMLODIPINE 10 MG TABLET PO SCH (08:10)
[2021-11-04] MEDS: VITAMINS A AND D OINT TP SCH (08:11)
[2021-11-04] MEDS: SERTRALINE HCL 50 MG TABLET PO SCH ×2 (08:11→17:25)
--- NOTE | 2021-11-04 09:42 | NUR ---
GPS: PT SEEN AWAKE, PACING ON THE HALLWAY, FEELS ANXIOUS, RESTLESS, IN AND OUT OF ROOM, TALKING TO SELF. GIVEN AM MEDICATIONS AND TOLERATED WELL. PT NEEDS REDIRECTION ALL THE TIME. AT THIS TIME, PT IS IN THE ROOM QUIET AND DENIES PAIN OR DISCOMFORT. WILL MONITOR.
[2021-11-04 15:12] VITALS: BP 120/72
--- NOTE | 2021-11-04 18:39 | NUR ---
GPS: PT HAS BEEN QUIET THE WHOLE DAY EXCEPT WITH SOME EPISODE OF RESTLESSNESS AND ANXIETY AROUND [phone] WHEN PT PACING THE ROOM IN AND OUT TO SW ROOM. PT REDIRECTED BY SW AND CONFIGURATION MANAGEMENT ADMINISTRATOR AND ABLE TO STAY IN HIS ROOM QUIETLY. AFTER LUNCH, PT WAS QUIET UNTIL NOW. PT ATE DINNER. COOPERATIVE WITH CARE AND MEDS. NO AGITATION AT THIS TIME AND NOT IN DISTRESS.
[2021-11-04 19:51] VITALS: BP 136/76
[2021-11-04] MEDS: HYDROXYZINE PAMOATE 25 MG CAPSULE PO SCH (20:18)
[2021-11-04] MEDS: QUETIAPINE FUMARATE 100 MG TABLET PO SCH (20:18)
[2021-11-05] MEDS: ACETAMINOPHEN 325 MG TABLET PO PRN (06:12)
--- NOTE | 2021-11-05 06:15 | NUR ---
PATIENT SLEPT FOR APPROX 9 HRS THROUGH THE NIGHT. HE IS NOTED ANXIOUS, PACING THE HALLWAY. HE STATED, "I DON'T WANT TO GO TO THAT PLEASE". "I DON'T WANT TO LIVE THIS WAY. I AM SUFFERING". PATIENT IS REASSURED AND REDIRECTED. HE IS BEING CLOSELY MONITOR.
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
[2021-11-05 07:39] VITALS: BP 125/88
[2021-11-05] MEDS: risperiDONE 1 MG TABLET PO SCH (07:51)
[2021-11-05 07:52] VITALS: BP 125/88
[2021-11-05] MEDS: GABAPENTIN 300 MG CAPSULE PO SCH (07:52)
[2021-11-05] MEDS: METFORMIN HCL 500 MG TABLET PO SCH (07:52)
[2021-11-05] MEDS: SERTRALINE HCL 50 MG TABLET PO SCH (07:52)
[2021-11-05] MEDS: DIVALPROEX 500 MG TABLET.DR PO SCH (07:52)
[2021-11-05] MEDS: LINAGLIPTIN 5 MG TABLET PO SCH (07:52)
[2021-11-05] MEDS: AMLODIPINE 10 MG TABLET PO SCH (07:52)
[2021-11-05] MEDS: FUROSEMIDE 40 MG TABLET PO SCH (07:53)
[2021-11-05] MEDS: VITAMINS A AND D OINT TP SCH (07:53)
[2021-11-05] MEDS ORDERED: LORAZEPAM 2 MG/1 ML VIAL IM ONE (09:00)
--- NOTE | 2021-11-05 09:17 | NUR ---
GPS: PT PACING ALONG THE HALLWAY SO ANXIOUS, DISRUPTING STAFF AND SCREAMING AND YELLING WHILE GOING IN AND OUT OF THE ROOM. DR NIKKI COLES ORDERED ATIVAN 1 MG IM. ADMINISTERED TO PT, TOLERATED WELL. PT STILL NOTED ANXIOUS. WILL CLOSELY MONITOR.
--- NOTE | 2021-11-05 09:40 | NUR ---
MANUELA Discharge Note: Pt will be discharged to [facility] [place] [address] ([phone]) via Ambulance transportation at 11AM. MANUELA spoke with admin coordinator, Ragini at the facility who states they are ready to accept the patient today. MANUELA contacted pts mother, Leeanna ([phone]) and left a voicemail for a call back regarding pts discharge plan to [facility]. Pt is aware and agreeable with discharge plans. Pt is alert and oriented x4, is unable to plan for self-care at this time; however, is willing to accept care at [facility]. Pt denies any suicidal or homicidal ideation. Pt will follow-up at the facility with Psychiatrist, Dr. De La Rosa and Web Editor, Dr. Radford. Pt presents with calm mood and congruent affect.
--- NOTE | 2021-11-05 10:43 | NUR ---
MANUELA Discharge Note Update: Pt will be discharged to [facility] [place] [address] ([phone]) via Ambulance transportation at 11AM. MANUELA spoke with admin coordinator, Ragini at the facility who states they are ready to accept the patient today. MANUELA contacted pts mother, Tiffanie ([phone]) and Leeanna ([phone]) and discussed the pts discharge plan to [facility]. Tiffanie and Leeanna are aware and agreeable with the discharge plan. Pt is aware and agreeable with discharge plans. Pt is alert and oriented x4, is unable to plan for self-care at this time; however, is willing to accept care at [facility]. Pt denies any suicidal or homicidal ideation. Pt will follow-up at the facility with Psychiatrist, Dr. De La Rosa and Legal Billing Coordinator, Dr. Radford. Pt presents with calm mood and congruent affect. PHARMACY: [facility] ([phone]) [address] [place] [address].
--- NOTE | 2021-11-05 11:49 | NUR ---
GPS: PT ON BED, QUIET AND CALM. PT WILL BE DISCHARGE TODAY TO [facility]. REPORTED TO ADMITTING NURSE DES. PT DENIES ANY PAIN OR DISCOMFORT. AMBULANCE TRANSPORTATION COMING AT 1130. ALL BELONGINGS CHECKED, PT UNABLE TO SIGN. Addendum: 11/05/21 at 1209 by JOSE GIBBONS RN AMBULANCE TRANSPORTATION CAME. PSYCHIATRIST AND SECURITY REP AWARE OF THE DISCHARGE. PT COOPERATIVE TO AMBULANCE TRANSPORTATION.
== END 2021-11-05 12:25 | DRG 880 ==
LOC: ER 12:52 → GPS 15:51
PROVIDERS: ADMIT Psychiatry & Neurology Psychiatry; ATTEND Family Medicine
DX: F41.1 Generalized anxiety disorder (principal); E11.65 Type 2 diabetes mellitus with hyperglycemia; R45.851 Suicidal ideations; F29 Unspecified psychosis not due to a substance or known physiological condition; I10 Essential (primary) hypertension; R79.89 Other specified abnormal findings of blood chemistry; L85.3 Xerosis cutis; E11.40 Type 2 diabetes mellitus with diabetic neuropathy, unspecified; Z20.822 Contact with and (suspected) exposure to COVID-19; Z79.84 Long term (current) use of oral hypoglycemic drugs; Z79.899 Other long term (current) drug therapy; E05.90 Thyrotoxicosis, unspecified without thyrotoxic crisis or storm
CPT/HCPCS: 36415; 70450; 71045; 80164; 83735; 84100; 84443; 84484; 85025; 93005; 97161; A4663; G0480; J1200; J1630; J2060; J2358

== ENCOUNTER 2021-11-08 13:31 | Inpatient (IN) | payer MEDICARE, OTHER ==
[~2021-11-08] VITALS: Ht 172.7 cm; Wt 83.9 kg
[~2021-11-08 13:31] MED LIST: AMLO10TA59 PO; FURO40TA5 PO; METF-442 PO; SITA100T PO
[2021-11-08] MEDS ORDERED: LORAZEPAM 1 MG TABLET ONE (13:42)
[2021-11-08] MEDS ORDERED: LORAZEPAM 0.5 MG TABLET PO ONE (13:45)
--- NOTE | 2021-11-08 13:47 | NUR ---
PT IS IN ROOM #2B. DR PRESLEY EVALUATED THE PT.
[2021-11-08 13:50] LABS: HEMATOCRIT 39.8 % (36.7-47.1); MEAN CORPUSCULAR HEMOGLOBIN 29.3 uug (23.8-33.4); MEAN CORPUSCULAR VOLUME 87.1 fL (73.0-96.2); PLATELET COUNT (AUTO) 187 K/uL (152-348)
[2021-11-08] MEDS ORDERED: FURO40TA5 PO (13:52)
[2021-11-08] MEDS ORDERED: LORA0.5T48 PO (13:52)
[2021-11-08] MEDS ORDERED: QUET100T PO (13:52)
[2021-11-08] MEDS ORDERED: SERT25TA PO (13:52)
[2021-11-08] MEDS ORDERED: RISP1TAB97 PO (13:52)
[2021-11-08] MEDS ORDERED: GABA-532 PO (13:52)
[2021-11-08] MEDS ORDERED: METF-442 PO (13:52)
[2021-11-08] MEDS ORDERED: AMLO10TA59 PO (13:52)
[2021-11-08] MEDS ORDERED: LINA5TAB PO (13:52)
[2021-11-08] MEDS ORDERED: DIVA-78 PO (13:52)
[2021-11-08] MEDS ORDERED: HYDR50TA62 PO (13:52)
[2021-11-08 13:59] LABS: CARBON DIOXIDE 32 mmol/L (21-32); CHLORIDE 103 mmol/L (98-107); CREATININE 1.1 mg/dL (0.6-1.3); GLUCOSE 130 mg/dL (74-106); POTASSIUM 3.6 mmol/L (3.5-5.1); UREA NITROGEN, BLOOD 22 mg/dL (7-18)
[2021-11-08] MEDS ORDERED: diphenhydrAMINE 50 MG/1 ML VIAL IM ONE (14:00)
[2021-11-08] MEDS ORDERED: HALOPERIDOL LACTATE 5 MG/1 ML VIAL IM ONE ×2 (14:00→15:30)
[2021-11-08 14:04] LABS: *BILIRUBIN,URIN NEGATIVE (NEGATIVE); *BLOOD, URINE NEGATIVE (NEGATIVE); *CLARITY,URINE CLEAR (CLEAR); *COLOR,URINE YELLOW (YELLOW); *KETONES,URINE TRACE (NEGATIVE); *UROBILINOGEN,URINE 0.2 E.U./dl (NORMAL); LEUKOCYTE ESTERASE ,URINE NEGATIVE (NEGATIVE); NITRITE, URINE NEGATIVE (NEGATIVE); PH,URINE 5.5 (5.0-8.0); UGLUCOSE NEGATIVE (NEGATIVE)
[2021-11-08 14:05] LABS: ALANINE AMINOTRANSFERASE 21 U/L (16-63); ALKALINE PHOSPHATASE 64 U/L (50-136); ASPARTATE AMINOTRANSFERASE 11 U/L (15-37); BILIRUBIN,DIRECT 0.1 mg/dL (0.0-0.2); BILIRUBIN,TOTAL 0.3 mg/dL (0.2-1.0); TOTAL PROTEIN, SERUM 7.2 g/dL (6.4-8.2)
[2021-11-08] MEDS ORDERED: HALOPERIDOL LACTATE 5 MG/1 ML VIAL ONE ×2 (14:05→14:58)
[2021-11-08] MEDS ORDERED: diphenhydrAMINE 50 MG/1 ML VIAL ONE (14:05)
[2021-11-08 14:06] LABS: ETHANOL < 3 MG/DL (0-0)
[2021-11-08 14:09] LABS: *AMPHETAMINE, URINE NEGATIVE (NEGATIVE); *CANNABINOID, URINE NEGATIVE (NEGATIVE); *COCCAINE, URINE NEGATIVE (NEGATIVE); *OPIATE, URINE NEGATIVE (NEGATIVE); *PHENCYCLIDINE SCREEN,URINE NEGATIVE (NEGATIVE)
[2021-11-08 14:18] LABS: ACETAMINOPHEN < 2.0 ug/mL (10-30)
[2021-11-08] MEDS ORDERED: LORAZEPAM 2 MG/1 ML VIAL ONE (14:57)
[2021-11-08] MEDS ORDERED: LORAZEPAM 2 MG/1 ML VIAL IM ONE (15:30)
--- NOTE | 2021-11-08 16:15 | NUR ---
PATEL RIBBON CLEANER JESSENIA EVALUATED THE PT. PT WAS PLACED ON 51/50 HOLD DANGER TO OTHERS AND HIMSELF, GRVELY DISABLED. REPORT WAS GIVEN TO RN MHU. PT WAS TRANSFERED TO [facility] ROOM #145 C.
--- NOTE | 2021-11-08 16:30 | NUR ---
Gps/Director Of Pharmacy- Received report from Terrence Arevalo
[2021-11-08 16:45] VITALS: BP 164/77
--- NOTE | 2021-11-08 16:45 | NUR ---
Gps/Service Observer- Received patient from ER via wheel chair, extremely anxious , figity, restless, weinning, not redirectable, potential for fall , very unsteady during his transfers . Patient was put in a ankur-chair for safety. Unable to get information during admission patient extremely agitated , anxious & loud .Noted patient oral mucosa extremely dry, poor oral hygiene , crusty mouth, oral care was provided by POSTAL MAIL CARRIER, fluids offered as requested.
[2021-11-08] MEDS ORDERED: MAGNESIUM HYDROXIDE 30 ML LIQUID UDC PO PRN (17:00)
[2021-11-08] MEDS ORDERED: BLOOD SUGAR DIAGNOSTIC 1 EACH STRIP VI ONE (17:00)
[2021-11-08] MEDS ORDERED: MAG HYDROX/AL HYDROX/SIMETH 30 ML LIQUID UDC PO PRN (17:00)
[2021-11-08] MEDS: LORAZEPAM 0.5 MG TABLET PO PRN (20:35)
[2021-11-08] MEDS: LISINOPRIL 5 MG TABLET PO SCH (20:35)
[2021-11-08] MEDS ORDERED: hydrOXYzine HCL 25 MG TABLET ONE (21:14)
[2021-11-08] MEDS: hydrOXYzine HCL 25 MG TABLET PO SCH (21:19)
[2021-11-09] MEDS: LORAZEPAM 0.5 MG TABLET PO PRN ×4 (01:36→18:37)
[2021-11-09] MEDS: TEMAZEPAM 7.5 MG CAPSULE PO PRN ×3 (01:37→23:18)
--- NOTE | 2021-11-09 02:36 | NUR ---
Received the patient at the start of the shift, non stop yelling, demanding, restless, unmanageable. This behavior continued throughout the night. The patient does not have any impulse control. None of the staff members, including the perennial house manager was able to redirect or calm the patient down. PRN medications were provided with zero effect. The patient needed a 1:1 in order to remove him from the general area to the day room d/t the constant load yelling. This patient is disruptive to the unit and makes the other patients nervous and keeps them awake. Despite the best efforts of the staff, the only thing that can be done at this point for the patient is to keep Safety Stratiges in place and provide the patient his basic needs when allowed. No signs of improvement at this time. Continuing with the plan of care.Will endorse concerns with the oncoming shift.
--- NOTE | 2021-11-09 05:47 | NUR ---
Patient continues to yell. .30 min of sleep last night, at the most. A 1:[address] for safety.
[2021-11-09] MEDS ORDERED: OLANZAPINE 10 MG VIAL IM ONE (07:45)
[2021-11-09] MEDS ORDERED: LORAZEPAM 2 MG/1 ML VIAL IM ONE ×2 (07:45→13:45)
--- NOTE | 2021-11-09 08:00 | NUR ---
Gps/Hand Sewer- Patient extremely agitated, loud , restless, anxious, calling out , yelling , disruptive , staff had difficulty redirecting patient, hit staff as they try to assist patient in repositioning. Dr Cornejo was called by government affairs director Rupali, orders received. Staff has difficulty keeping him in his ankur-chair r/t restlessness, unsteady gait , poor safety awareness, remains on 1:1 Nursing supervision for safety.
[2021-11-09] MEDS: LINAGLIPTIN 5 MG TABLET PO SCH (08:02)
[2021-11-09] MEDS: METFORMIN HCL 500 MG TABLET PO SCH ×2 (08:02→17:49)
[2021-11-09] MEDS: AMLODIPINE 10 MG TABLET PO SCH (08:02)
[2021-11-09] MEDS: FUROSEMIDE 40 MG TABLET PO SCH (08:02)
[2021-11-09] MEDS: LISINOPRIL 5 MG TABLET PO SCH ×2 (08:05→21:00)
[2021-11-09 08:37] VITALS: BP 141/75
[2021-11-09] MEDS: DIVALPROEX 250 MG TABLET.DR PO SCH ×2 (12:12→17:48)
[2021-11-09] MEDS: busPIRone 5 MG TABLET PO SCH ×2 (12:12→17:48)
[2021-11-09] MEDS: BENZTROPINE MESYLATE 0.5 MG TABLET PO SCH ×2 (12:12→17:48)
--- NOTE | 2021-11-09 12:58 | NUR ---
Gps/Fire Inspector- Patient's mother (Tiffanie) called, verbalized concerns , questioning why her son(pt.) still having difficulty with his anxiety, behavior remains the same , claimed when he was at home when he gets anxious, he was given a cup of regular coffee , informed we dont give regular coffee to our patient, claimed it was only a suggestions. Informed Psychiatrist ordering new medication for him (pamela) , will continue to monitor behavior ..
--- NOTE | 2021-11-09 15:30 | NUR ---
Gps/Gas Leak Inspector- Patient was put to bed, asleep at this time , repositioned to her right side, remains with 1:1 supervision for safety
[2021-11-09 16:06] VITALS: BP 141/75
[2021-11-09] MEDS: risperiDONE 1 MG TABLET PO SCH ×2 (17:48→21:02)
--- NOTE | 2021-11-09 17:56 | NUR ---
Gps/Agricultural Produce Sorter- Patient remains asleep at this time, in no sign of any distress, noted figity while asleep , Tiffanie (mother) , called to check on patient , informed patient asleep at this time , verbalized some relief to know patient had some sleep , claimed he was frantic when she talked to patient this pm, wants to know new psych. med. , reviewed .
--- NOTE | 2021-11-09 18:44 | NUR ---
Gps/Lead Tank Mechanic- Patient awake, started to get oob, noted unsteady gait , difficulty redirecting patient , loud , yelling , frantic, making noise , disruptive, staff has difficulty redirecting patient. Fluids offered, complained dry mouth , oral care encouraged , was rendered. Remains with 1:1 nursing supervision , pt. potential for fall , poor safety judgement, kept patient up in his recliner chair , closely monitored for safety.
[2021-11-09] MEDS: hydrOXYzine HCL 25 MG TABLET PO SCH (21:01)
[2021-11-10] MEDS: LORAZEPAM 0.5 MG TABLET PO PRN ×3 (00:40→12:55)
[2021-11-10] MEDS: ACETAMINOPHEN 325 MG TABLET PO PRN ×2 (03:14→12:54)
[2021-11-10 07:27] LABS: HEMATOCRIT 40.4 % (36.7-47.1); MEAN CORPUSCULAR HEMOGLOBIN 29.3 uug (23.8-33.4); MEAN CORPUSCULAR VOLUME 87.1 fL (73.0-96.2); PLATELET COUNT (AUTO) 189 K/uL (152-348)
[2021-11-10 07:30] VITALS: BP 135/94
[2021-11-10 07:42] LABS: BILIRUBIN,TOTAL 0.7 mg/dL (0.2-1.0); CREATININE 2.5 mg/dL (0.6-1.3); MAGNESIUM 1.9 mg/dL (1.8-2.4); PHOSPHOROUS 5.8 mg/dL (2.5-4.9); TOTAL PROTEIN, SERUM 7.9 g/dL (6.4-8.2)
[2021-11-10] MEDS: FUROSEMIDE 40 MG TABLET PO SCH (08:11)
[2021-11-10] MEDS: LISINOPRIL 5 MG TABLET PO SCH ×2 (08:12→21:27)
[2021-11-10] MEDS: busPIRone 5 MG TABLET PO SCH ×3 (08:12→20:22)
[2021-11-10] MEDS: METFORMIN HCL 500 MG TABLET PO SCH (08:13)
[2021-11-10] MEDS: DIVALPROEX 250 MG TABLET.DR PO SCH ×3 (08:13→20:23)
[2021-11-10] MEDS: risperiDONE 1 MG TABLET PO SCH ×3 (08:13→20:22)
[2021-11-10] MEDS: LINAGLIPTIN 5 MG TABLET PO SCH (08:13)
[2021-11-10] MEDS: BENZTROPINE MESYLATE 0.5 MG TABLET PO SCH ×3 (08:13→17:36)
[2021-11-10] MEDS: AMLODIPINE 10 MG TABLET PO SCH (08:14)
--- NOTE | 2021-11-10 12:12 | NUR ---
SW Admit Source: Pt was admitted to [facility] from [facility] [address] [facility] [address] ([phone]). Pt will not be accepted back to the facility due to pt's aggressive/agitated behavior. SW will continue to be in contact with pt's sister, Leeanna ([phone]) and pt's mother. SW will continue to work with pt, family and MD to ensure a safe and proper discharge plan.
--- NOTE | 2021-11-10 12:12 | NUR ---
MANUELA Initial Discharge Note: Pt was [facility] [address] [facility] [address] ([phone]). Pt will not be accepted back to the facility due to pt's aggressive/agitated behavior. SW will continue to be in contact with pt's sister, Leeanna ([phone]) and pt's mother. MANUELA will continue to work with pt, family and MD to ensure a safe and proper discharge plan.
[2021-11-10] MEDS: chlorproMAZINE 25 MG TABLET PO SCH ×2 (15:14→20:22)
[2021-11-10 15:21] VITALS: BP 90/71
--- NOTE | 2021-11-10 15:56 | NUR ---
Received patient awake in his room, yelling, anxious, agitated, whining, crying, trying to climb out of his bed. Patient is currently 1:1 in risk for falls. Patient is given Ativan 0.5 mg at 13:02 for anxiety, ineffective. Tylenol 650 mg at 13:02 for headache, ineffective. XR chest was performed at 08:00 am. Requires more than minimal assistance with ADL. Compliant with medications. Pt. started taking Thorazine 25 mg TID prescribed by the doctor. Reality orientation provided. Fall and safety precautions implemented.
[2021-11-10] MEDS: GLUCERNA SHAKE 237 ML CAN PO SCH (17:00)
[2021-11-10 20:05] VITALS: BP 101/76
[2021-11-11] MEDS: LORAZEPAM 0.5 MG TABLET PO PRN ×4 (02:35→15:14)
--- NOTE | 2021-11-11 02:35 | NUR ---
patient is yelling, anxious, agitated, whining. Patient is given Ativan 0.5 mg for anxiety. Requires more than minimal assistance with ADL. Reality orientation provided. Fall and safety precautions implemented.
--- NOTE | 2021-11-11 03:35 | NUR ---
NSG: patient still yelling and anxious prn ativan not effective.
--- NOTE | 2021-11-11 05:43 | NUR ---
GPS: Remain non stop yelling, restless, unmanageable. This behavior continued throughout the night. The patient does not have any impulse control. PRN medications were provided with zero effect. This patient is disruptive to the unit and makes the other patients nervous and keeps them awake. No signs of improvement at this time. Continuing with the plan of care. assisted with adl's. redness noted on buttocks area. z-guard apply.kept clean and dry.continue plan of care.
--- NOTE | 2021-11-11 05:58 | NUR ---
slept 4 hrs through the night.
--- NOTE | 2021-11-11 06:45 | NUR ---
patient is yelling loud. ativan 0.5 mg po prn given for anxiety.
[2021-11-11 07:30] VITALS: BP 90/72
[2021-11-11] MEDS: risperiDONE 1 MG TABLET PO SCH ×3 (07:58→21:06)
[2021-11-11] MEDS: LINAGLIPTIN 5 MG TABLET PO SCH (07:58)
[2021-11-11] MEDS: BENZTROPINE MESYLATE 0.5 MG TABLET PO SCH ×3 (07:58→16:48)
[2021-11-11] MEDS: chlorproMAZINE 25 MG TABLET PO SCH ×4 (07:58→21:06)
[2021-11-11] MEDS: FUROSEMIDE 40 MG TABLET PO SCH (07:58)
[2021-11-11] MEDS: AMLODIPINE 10 MG TABLET PO SCH (07:59)
[2021-11-11] MEDS: busPIRone 5 MG TABLET PO SCH ×3 (07:59→21:06)
[2021-11-11] MEDS: LISINOPRIL 5 MG TABLET PO SCH ×2 (08:00→21:07)
[2021-11-11] MEDS: ACETAMINOPHEN 325 MG TABLET PO PRN (08:03)
[2021-11-11] MEDS: GLUCERNA SHAKE 237 ML CAN PO SCH ×2 (08:04→16:48)
[2021-11-11] MEDS: DIVALPROEX 250 MG TABLET.DR PO SCH ×3 (08:41→21:06)
--- NOTE | 2021-11-11 09:10 | NUR ---
Routine am meds given at 8am, compliant. He is now resting comfortably, BP 114/64, OH 100. Not in any distress. will continue to monitor for safety.
--- NOTE | 2021-11-11 12:32 | NUR ---
The patient is unable to make needs known. Makes nonsensical sounds. Unable to redirect. Unable to eat his food. will continue to monitor for safety. Aspiration precaution will be maintained.
[2021-11-11] MEDS ORDERED: chlorproMAZINE 25 MG TABLET PO SCH (13:00)
--- NOTE | 2021-11-11 13:10 | NUR ---
Unable to do EKG. Pt uncooperative and agitated. RN Di aware.
[2021-11-11 15:01] VITALS: BP 151/83
--- NOTE | 2021-11-11 18:34 | NUR ---
The patient remained stable. EKG was not done, patient in uncooperative. Charge nurse aware. Safety measures maintained. Assisted with all his needs. PRN meds given. He started yelling around 5pm, unable to make needs knwon. Aspiration precaution maintained. Turning and repositioned done when in bed/gurney. Frequent visual checks done. no distress identified during the shift. all needs attended. safety measures maintained. will endorse to the next shift for continuity of care.
[2021-11-11 20:00] VITALS: BP 148/94
[2021-11-11] MEDS ORDERED: ATORVASTATIN 10 MG TABLET PO SCH (21:00)
[2021-11-11] MEDS: TEMAZEPAM 7.5 MG CAPSULE PO PRN (23:52)
[2021-11-12] MEDS: LORAZEPAM 0.5 MG TABLET PO PRN ×2 (01:04→09:40)
--- NOTE | 2021-11-12 06:45 | NUR ---
Patient frequently screams and yell. Was restless and very anxious. Ativan 1mg PO given for anxiety and Restoril for sleep and effective. Slept 7.15 hours.
[2021-11-12 07:30] VITALS: BP 143/71
--- NOTE | 2021-11-12 07:35 | NUR ---
Informed RT they can do the EKG while patient is asleep. Per Kapil, he will send someone.
--- NOTE | 2021-11-12 07:44 | NUR ---
Called EPIC group to report patient has not been eating, and drinking. He is high risk for dehydration and aspiration. Awaiting advise. Will continue to monitor.
--- NOTE | 2021-11-12 08:01 | NUR ---
EKG result sent to Dr Mills and Dr Mayte NP.
--- NOTE | 2021-11-12 08:14 | NUR ---
Dr Puga, SALES AND MARKETING INTERN ordered CBC CMP. Informed lab.
[2021-11-12 08:40] VITALS: BP 143/71
[2021-11-12] MEDS: DIVALPROEX 250 MG TABLET.DR PO SCH (08:40)
[2021-11-12] MEDS: busPIRone 5 MG TABLET PO SCH (08:40)
[2021-11-12] MEDS: LISINOPRIL 5 MG TABLET PO SCH (08:40)
[2021-11-12] MEDS: chlorproMAZINE 25 MG TABLET PO SCH (08:40)
[2021-11-12] MEDS: AMLODIPINE 10 MG TABLET PO SCH (08:40)
[2021-11-12] MEDS: FUROSEMIDE 40 MG TABLET PO SCH (08:40)
[2021-11-12] MEDS: LINAGLIPTIN 5 MG TABLET PO SCH (08:40)
[2021-11-12] MEDS: risperiDONE 1 MG TABLET PO SCH (08:40)
[2021-11-12] MEDS: BENZTROPINE MESYLATE 0.5 MG TABLET PO SCH ×2 (08:40→13:40)
[2021-11-12] MEDS: GLUCERNA SHAKE 237 ML CAN PO SCH (08:41)
--- NOTE | 2021-11-12 10:24 | NUR ---
MD notified patient is high risk for aspiration, ST eval order in place. aspiration prec will be maintained.
[2021-11-12 10:41] LABS: HEMATOCRIT 37.7 % (36.7-47.1); MEAN CORPUSCULAR HEMOGLOBIN 29.6 uug (23.8-33.4); MEAN CORPUSCULAR VOLUME 87.6 fL (73.0-96.2); PLATELET COUNT (AUTO) 159 K/uL (152-348)
[2021-11-12 11:03] LABS: BILIRUBIN,TOTAL 1.1 mg/dL (0.2-1.0); CREATININE 4.5 mg/dL (0.6-1.3); POTASSIUM 4.3 mmol/L (3.5-5.1); TOTAL PROTEIN, SERUM 7.8 g/dL (6.4-8.2)
--- NOTE | 2021-11-12 11:35 | NUR ---
Critical lab was reported by Rufina from the lab. BUN [address] Hu, DIGITAL MEDIA INTERN made aware and order to transfer to [facility].
[2021-11-12 12:49] LABS: BAND % (MANUAL) 4 % (0-10); LYMPHOCYTES % (MANUAL) 8 % (20-40); MONOCYTES % (MANUAL) 16 % (2-10); NEUTROPHILS % (MANUAL) 72 % (42-75)
[2021-11-12] MEDS ORDERED: IV 1/2NS 1000 ML 1,000 ML IV ONE (13:00)
--- NOTE | 2021-11-12 13:24 | NUR ---
Dr De La Rosa confirmed patient will discontinue 5250 hold once he is transferred to the Medical floor.
--- NOTE | 2021-11-12 13:41 | NUR ---
IV hydration will be given once patient is transferred to the medical floor.
--- NOTE | 2021-11-12 14:40 | NUR ---
Discharged patient to the Medical floor. report given to RN. Patient is sleeping comfortably with VS WNL. MD made aware of transfer to room 314. No acute distress identified. No pain noted during transfer.
== END 2021-11-12 14:40 | disposition short-term general hospital (02) | DRG 885 ==
LOC: ER 13:31 → GPS 16:14
PROVIDERS: ADMIT Nurse Practitioner Psychiatric/Mental Health; ATTEND Internal Medicine
DX: F25.0 Schizoaffective disorder, bipolar type (principal); N17.0 Acute kidney failure with tubular necrosis; E11.9 Type 2 diabetes mellitus without complications; Z79.84 Long term (current) use of oral hypoglycemic drugs; E66.9 Obesity, unspecified; F32.A Depression, unspecified; F41.9 Anxiety disorder, unspecified; I10 Essential (primary) hypertension; Z20.822 Contact with and (suspected) exposure to COVID-19; F32.9 Major depressive disorder, single episode, unspecified; F39 Unspecified mood [affective] disorder; F29 Unspecified psychosis not due to a substance or known physiological condition; Z68.28 Body mass index [BMI] 28.0-28.9, adult
CPT/HCPCS: 36415; 70030-TC; 71045; 83735; 84100; 85025; 93005; 97161; A4663; G0480; J1200; J1630; J2060; J2358; J3490; Q0161

== ENCOUNTER 2021-11-12 14:55 | Inpatient (IN) | payer MEDICARE, OTHER ==
[~2021-11-12] VITALS: Ht 172.7 cm; Wt 71.2 kg
--- NOTE | 2021-11-12 14:50 | NUR ---
ADMITTED FROM [facility] A 61 YO FEMALE WITH THE ADM DX OF JENAE VIA ALYSE CHAIR, PATIENT VERY LETHARGIC WHEN TRANSFERRED TO THE UNIT, BP=84/43, HR 79, RA SAT 84%, TEMP 98.1, RR 18. PLACED ON 5L O2 VIA NC, HOSPITALIST IN WITH ORDER OF NS BOLUS [address] ON TELE STATUS SR ON MONITOR
[~2021-11-12 14:55] MED LIST changes: +HYDR50TA62 PO; +LINA5TAB PO; -SITA100T PO
[2021-11-12] MEDS ORDERED: MAGNESIUM HYDROXIDE 30 ML LIQUID UDC PO PRN (15:15)
[2021-11-12] MEDS ORDERED: DEXTROSE 50% 50 ML DISP.SYRIN IV PRN (15:30)
[2021-11-12] MEDS ORDERED: IV NORMAL SALINE 500 ML BAG IV ONE (15:30)
--- NOTE | 2021-11-12 15:30 | NUR ---
NS BOLUS RUNNING ORDERED, BP 102/54, O2 SAT 95%. MCKEON CATH INSERTED. MITTENS APPLIED DUE TO TENDENCY OF PULLING MCKEON AND IV TUBINGS. BS 237 WARM AND DRY SKIN. CONTINUE O2 5L NC SATURATING 94-96%
--- NOTE | 2021-11-12 15:51 | NUR ---
SW Transfer Note: Pt is alert and oriented x1(name). Pt was alert and oriented x4 at first admission on October 13, 2021 for psychosis. Pt was readmitted on November 08, 2021 and appears to be declining. is aware of the transfer from [facility] to [facility] due to acute kidney injury per report. Pt's family has been notified by nursing regarding pt's transfer to [facility]. Anita from admissions at [facility] stated pt is accepted upon discharge ([phone]) [address] [place] [address] and Alix from admissions at [facility] [phone]) [address] [place] [address] stated pt is also accepted to their facility upon discharge. Upon discharge, if pt requires one to one, pt will d/c to [place] as they have approved one to one continuation of care at their facility.
[2021-11-12] MEDS ORDERED: CEFTRIAXONE 1 G in IV DEXTROSE 5% 50 ML IV SCH (16:00)
[2021-11-12] MEDS: IV 1/2NS 1000 ML 1,000 ML IV PRN (16:00)
[2021-11-12 16:40] VITALS: BP 84/43
[2021-11-12 16:54] LABS: *BILIRUBIN,URIN 1+ (NEGATIVE); *BLOOD, URINE 1+ (NEGATIVE); *CLARITY,URINE CLEAR (CLEAR); *COLOR,URINE YELLOW (YELLOW); *KETONES,URINE NEGATIVE (NEGATIVE); *UROBILINOGEN,URINE 0.2 E.U./dl (NORMAL); LEUKOCYTE ESTERASE ,URINE NEGATIVE (NEGATIVE); NITRITE, URINE NEGATIVE (NEGATIVE); UGLUCOSE NEGATIVE (NEGATIVE)
--- NOTE | 2021-11-12 17:17 | NUR ---
BS 237, DO NOT COVER PER Gale LA
[2021-11-12] MEDS: BLOOD SUGAR DIAGNOSTIC 1 EACH STRIP VI SCH ×2 (17:31→20:57)
[2021-11-12 18:35] LABS: SQUAMOUS EPITHELIAL CELL,UR FEW /HPF (NONE SEEN); WBC,URINE NONE SEEN /HPF (0-3)
[2021-11-12 18:36] LABS: BACTERIA,URINE MANY /HPF (NONE SEEN)
[2021-11-12 20:00] VITALS: BP_SYST 115; BP_SYST 125; BP_DIAS 54; BP_DIAS 64
--- NOTE | 2021-11-12 20:45 | NUR ---
Pt in bed resting, eyes closed. B hand mittens in place. IV site intact. Pt has garbled speech. Nursing swallow eval done, pt able to swallow without coughing, no signs of aspiration.
[2021-11-12] MEDS: INSULIN REGULAR, HUMAN 300 UNIT/3 ML VIAL SQ PRN (21:07)
--- NOTE | 2021-11-12 23:19 | NUR ---
Received report from SAJI for further care
--- NOTE | 2021-11-12 23:24 | NUR ---
Report given to Rochelle STRAUSS to assume care of patient.
[2021-11-13 00:18] VITALS: BP 125/64
[2021-11-13] MEDS: ZOLPIDEM 5 MG TABLET PO PRN (01:39)
--- NOTE | 2021-11-13 01:41 | NUR ---
patient removing ponce catheter and restless. charge called the physician product demonstrator for orders, received on bilateral mitten restraints but patient was able to pull on the ponce catheter and fights when cared for, bilateral soft wrist restraints applied and mittens discontinued. fluids given .tolerated well
--- NOTE | 2021-11-13 02:48 | NUR ---
dozing off intermittently but shouts on and off,will continue to monitor
--- NOTE | 2021-11-13 03:13 | NUR ---
sleeping intermittently
[2021-11-13 04:00] VITALS: BP_SYST 114; BP_SYST 121; BP_DIAS 48; BP_DIAS 61
--- NOTE | 2021-11-13 04:11 | NUR ---
asleep. with bilateral soft wrist restraints on for safety.
[2021-11-13] MEDS: ACETAMINOPHEN 325 MG TABLET PO PRN (04:44)
--- NOTE | 2021-11-13 04:49 | NUR ---
temp 101.0 orally.tylenol 650 mg po crushed and given with apple sauce, cold compress applied .
[2021-11-13] MEDS: IV 1/2NS 1000 ML 1,000 ML IV PRN ×2 (05:01→16:16)
--- NOTE | 2021-11-13 05:37 | NUR ---
[facility] medical group on duty called to inform, that the patient temp 101.0 and the heart rate 142/min. shouting and agitated. Dr Cornell is net solutions architect.message left with the exchange.awaiting response Addendum: 11/13/21 at 0541 by REGISTRY [facility] RN1 RN awaiting response
--- NOTE | 2021-11-13 05:51 | NUR ---
Dr Coello called back and informed about the patient heart rate 142/min and is shouting and restless. with orders and carried out Addendum: 11/13/21 at 0602 by REGISTRY [facility] RN1 RN is aware that the patient is shouting intermittently and the heart rate is elevated, with no further orders made Addendum: 11/13/21 at 0604 by REGISTRY [facility] RN1 RN cold fomentations applied for the fever.
[2021-11-13] MEDS: BLOOD SUGAR DIAGNOSTIC 1 EACH STRIP VI SCH ×4 (06:36→20:53)
--- NOTE | 2021-11-13 06:45 | NUR ---
blood sugar 181mg/dl
--- NOTE | 2021-11-13 06:48 | NUR ---
noted to be reaching for the ponce catheter and attempts to pull on it. repositioned away from his reach.with the same iv fluids on
[2021-11-13 06:55] LABS: MEAN CORPUSCULAR HEMOGLOBIN 29.6 uug (23.8-33.4); MEAN CORPUSCULAR VOLUME 87.8 fL (73.0-96.2); PLATELET COUNT (AUTO) 130 K/uL (152-348)
--- NOTE | 2021-11-13 06:57 | NUR ---
continous cold compress applied ,is quite and stopped shouting and being restless
[2021-11-13 07:04] LABS: NEUTROPHILS % (MANUAL) 0 % (42-75)
--- NOTE | 2021-11-13 07:09 | NUR ---
report given to the day shift rn that the HR was up to 143/min.latest 103/min. on bilateral soft wrist restraints for safety. Addendum: 11/13/21 at 0723 by REGISTRY [facility] RN1 RN blood culture collected. latest temp 100.1 orally. hr 99-100/min,asleep
[2021-11-13 07:17] LABS: MAGNESIUM 2.3 mg/dL (1.8-2.4); PHOSPHOROUS 3.3 mg/dL (2.5-4.9); POTASSIUM 3.6 mmol/L (3.5-5.1)
--- NOTE | 2021-11-13 08:00 | NUR ---
VERY RESTLESS AGITATED AND PULLING HER TUBES/IV LINES, CONTINUE RESTRAINT ORDERED
[2021-11-13] MEDS: LINAGLIPTIN 5 MG TABLET PO SCH (09:04)
[2021-11-13] MEDS: HALOPERIDOL 5 MG TABLET PO SCH ×2 (10:44→16:16)
[2021-11-13] MEDS: CLONAZEPAM 0.5 MG TABLET PO SCH ×3 (10:44→16:16)
[2021-11-13] MEDS: DIVALPROEX 250 MG TABLET.DR PO SCH ×3 (10:45→16:16)
[2021-11-13] MEDS: BENZTROPINE MESYLATE 0.5 MG TABLET PO SCH ×3 (10:46→16:17)
--- NOTE | 2021-11-13 11:30 | NUR ---
SEEN BY DR COLES FOR PSYCH WITH ORDERS AND CARRIED
[2021-11-13 12:00] VITALS: BP 151/64
[2021-11-13] MEDS ORDERED: PIPERACILLIN SODIUM/TAZOBACTAM 3.375 G in IV DEXTROSE 5% 50 ML IV SCH (12:00)
[2021-11-13] MEDS: INSULIN REGULAR, HUMAN 300 UNIT/3 ML VIAL SQ PRN ×3 (12:28→20:53)
[2021-11-13] MEDS: PIPERACILLIN SODIUM/TAZOBACTAM 3.375 G in IV DEXTROSE 5% 100 ML IV SCH ×2 (13:55→21:03)
--- NOTE | 2021-11-13 14:00 | NUR ---
PATIENT CONTINUE SCREAMING AND PULLING OUT TUBES, GETTING OUT OF BED HOSPITALIST NOTIFIED WITH ORDER TO GIVE ATIVAN 1 MG IV
[2021-11-13] MEDS ORDERED: LORAZEPAM 2 MG/1 ML VIAL IV PRN (14:28)
--- NOTE | 2021-11-13 15:00 | NUR ---
LESS SCREAMING AND RESTLESSNESS NOTED CLOSELY OBSERVED. STARTED ON ZOSYN NO ALLERGY REACTION.
[2021-11-13 16:00] VITALS: BP 106/53
[2021-11-13] MEDS: REMEDY ESSENTIAL ZINC PASTE 113 GM TP PRN (18:12)
[2021-11-13 20:00] VITALS: BP 139/68
--- NOTE | 2021-11-13 20:00 | NUR ---
ROUNDS MADE PATIENT IN BED ASLEEP ,. NO S/S OF PAIN OR RESPIRATORY DISCOMFORT . BREATHING EVEN AND UNLABORED . IVF INFUSING VIA THE RIGHT HEPLOCK PATIENT ON AT 90 ML/HR . RIGHT AND LEFT MITTENS IN PLACE AND SOFT WRIST RESTRAINTS TO FOLLOW RESTRAINTS PROTOCOL .
--- NOTE | 2021-11-13 21:00 | NUR ---
DUE ANTIBIOTIC GIVEN PATIENT ON ZOSYN VIA THE RIGHT HEPLOCK NO . 20
--- NOTE | 2021-11-13 21:20 | NUR ---
FINGERSTICK DONE 143 GIVEN INSULIN SLIDING SCALE REGULAR INSULIN 2 UNITS .
--- NOTE | 2021-11-14 | NUR ---
ROUNDS MADE PATIENT IN BED ASLEEP . TOLERATING 02 AT 2 L/MIN N/C .NO RESPIRATORY DISTRESS NOTED.
[2021-11-14] MEDS: ACETAMINOPHEN 325 MG TABLET PO PRN ×3 (01:05→23:26)
[2021-11-14] MEDS: ZOLPIDEM 5 MG TABLET PO PRN ×2 (01:05→23:27)
[2021-11-14] MEDS: IV 1/2NS 1000 ML 1,000 ML IV PRN (02:34)
[2021-11-14] MEDS: REMEDY ESSENTIAL ZINC PASTE 113 GM TP PRN ×2 (02:58→06:36)
[2021-11-14 04:00] VITALS: BP 115/60
[2021-11-14] MEDS: PIPERACILLIN SODIUM/TAZOBACTAM 3.375 G in IV DEXTROSE 5% 100 ML IV SCH ×3 (05:13→21:25)
[2021-11-14 06:30] LABS: HEMATOCRIT 32.4 % (36.7-47.1); MEAN CORPUSCULAR HEMOGLOBIN 30.4 uug (23.8-33.4); MEAN CORPUSCULAR VOLUME 89.8 fL (73.0-96.2); PLATELET COUNT (AUTO) 113 K/uL (152-348)
[2021-11-14] MEDS: BLOOD SUGAR DIAGNOSTIC 1 EACH STRIP VI SCH ×4 (06:36→21:32)
[2021-11-14 06:39] LABS: POTASSIUM 3.9 mmol/L (3.5-5.1)
[2021-11-14] MEDS: DIVALPROEX 250 MG TABLET.DR PO SCH ×3 (08:43→16:14)
[2021-11-14] MEDS: BENZTROPINE MESYLATE 0.5 MG TABLET PO SCH ×3 (08:43→16:14)
[2021-11-14] MEDS: CLONAZEPAM 0.5 MG TABLET PO SCH ×3 (08:43→16:14)
[2021-11-14] MEDS: LINAGLIPTIN 5 MG TABLET PO SCH (08:44)
[2021-11-14] MEDS: INSULIN REGULAR, HUMAN 300 UNIT/3 ML VIAL SQ PRN ×4 (08:56→21:50)
[2021-11-14] MEDS: HALOPERIDOL 5 MG TABLET PO SCH ×3 (09:40→16:14)
[2021-11-14 11:11] VITALS: BP 115/64
[2021-11-14] MEDS: ONDANSETRON 4 MG/2 ML VIAL IV PRN (16:14)
[2021-11-14 16:40] VITALS: BP 122/76
--- NOTE | 2021-11-14 18:25 | NUR ---
Pt is awake, consistently cries out. pt can verbalize needs, no complaints of pain or discomfort. Pt had 1 emesis during shift at 1600 in which zofran was administered. emesis has ceased and no complaints of nausea thus far. Pt wanted to use the restroom, assisted him to ambulate to restroom but gait is very unsteady. Educated to not get out of bed and use the urinal/diaper. Comfort measures provided, call light within reach. Iv patent and intact.
--- NOTE | 2021-11-14 19:00 | NUR ---
Received patient on bed, asleep, with O2 at 2L via NC, not in respiratory distress. No signs of pain.
[2021-11-14 20:41] VITALS: BP 107/76
--- NOTE | 2021-11-14 22:30 | NUR ---
Patient noted to have poor thought process and intermittently screaming.
--- NOTE | 2021-11-15 00:15 | NUR ---
Patient screaming, Ambien 5mg Po given and Tylenol PO given. Patient asked for fluids, given and tolerated well. He wants to go to the bathroom, needs 2 persons assist, ambulated to the bathroom, had bowel movement and voided freely. Assisted back to bed and repositioned for comfort, slept intermittently for about 30min .
--- NOTE | 2021-11-15 02:00 | NUR ---
Patient still screaming since Ambien and Tylenol was given., Notified Dr Alvarez, still waiting for response.
--- NOTE | 2021-11-15 02:49 | NUR ---
Received call from Dr Alvarez, notified patient`s condition, MD ordered to give Haldol 9AM scheduled dose at this time once only.
[2021-11-15] MEDS: HALOPERIDOL 5 MG TABLET PO SCH ×3 (03:09→18:02)
[2021-11-15] MEDS: ONDANSETRON 4 MG/2 ML VIAL IV PRN (03:11)
--- NOTE | 2021-11-15 03:40 | NUR ---
Patient fall to sleep and snoring, frequent visual check done.
--- NOTE | 2021-11-15 05:16 | NUR ---
Patient awake again, had bowel movement, cleaned up, patient trying to be combative while cleaning up. Offered apple sauce and snacks, tolerated well. PAtient started screaming again.
[2021-11-15 06:00] LABS: HEMATOCRIT 33.1 % (36.7-47.1); MEAN CORPUSCULAR HEMOGLOBIN 29.4 uug (23.8-33.4); MEAN CORPUSCULAR VOLUME 88.3 fL (73.0-96.2); PLATELET COUNT (AUTO) 142 K/uL (152-348)
[2021-11-15 06:08] LABS: CREATININE 1.4 mg/dL (0.6-1.3); POTASSIUM 3.7 mmol/L (3.5-5.1)
[2021-11-15] MEDS: PIPERACILLIN SODIUM/TAZOBACTAM 3.375 G in IV DEXTROSE 5% 100 ML IV SCH ×2 (06:09→13:22)
[2021-11-15] MEDS: BLOOD SUGAR DIAGNOSTIC 1 EACH STRIP VI SCH ×4 (06:10→20:44)
--- NOTE | 2021-11-15 07:30 | NUR ---
Awake, screaming. restless, agitated, confused, poor impulse control. Redirected with firm setting limits. Incontinence care done. Repositioned in bed comfortably. Bilateral soft wrist restraints on, monitored per protocol. O2 at 2L/NC. IVF infusing.
[2021-11-15] MEDS: BENZTROPINE MESYLATE 0.5 MG TABLET PO SCH ×3 (08:40→18:02)
[2021-11-15] MEDS: DIVALPROEX 250 MG TABLET.DR PO SCH ×3 (08:40→18:02)
[2021-11-15] MEDS: CLONAZEPAM 0.5 MG TABLET PO SCH ×3 (08:40→18:02)
[2021-11-15] MEDS: LINAGLIPTIN 5 MG TABLET PO SCH (08:40)
[2021-11-15] MEDS: INSULIN REGULAR, HUMAN 300 UNIT/3 ML VIAL SQ PRN ×3 (08:43→20:44)
[2021-11-15] MEDS ORDERED: HALOPERIDOL LACTATE 5 MG/1 ML VIAL IM ONE (09:00)
[2021-11-15] MEDS ORDERED: diphenhydrAMINE 50 MG/1 ML VIAL IV ONE (09:00)
--- NOTE | 2021-11-15 09:31 | NUR ---
Spoke with Dr. Mckeon, informed of patient's condition/behavior, with orders. Haldol and Benadryl given as ordered. Not effective, patient continued to yell.scream and restless/agitated
[2021-11-15 11:07] VITALS: BP 116/62
[2021-11-15] MEDS ORDERED: chlorproMAZINE 50 MG/2 ML AMPUL IM ONE (12:15)
[2021-11-15] MEDS ORDERED: LORAZEPAM 2 MG/1 ML VIAL IM ONE ×2 (12:15→12:45)
--- NOTE | 2021-11-15 12:51 | NUR ---
Spoke with Dr. Mackey informed of patient's condition/behavior and medications given, with orders. Thorazine and Ativan given as ordered. Patient quieted down.
--- NOTE | 2021-11-15 15:00 | NUR ---
Patient screaming, restless with feces all over. Combative when doing incontinence care /bed bath. Repositioned comfortably and restraints monitored per protocol.
[2021-11-15 15:21] VITALS: BP 120/70
--- NOTE | 2021-11-15 18:18 | NUR ---
Patient with BM again, incontinence care done. Repositioned in bed comfortably. Bilateral soft wrist restraints replaced.
--- NOTE | 2021-11-15 19:08 | NUR ---
Pulling out diaper and handling feces. Bilateral mittens applied. Endorsed for further care
--- NOTE | 2021-11-15 19:45 | NUR ---
Patient continues to be restless and screaming in bed. Able to answer simple questions with yes and no, speech is incoherent at times. He attempts to pinch and aggressively grab this nurse when mittens are removed. Dr. Mackey paged and made aware of behavior. States he will come see this patient today. Patient made comfortable and water provided. Safety measures initiated.
[2021-11-15] MEDS: METRONIDAZOLE 500 MG/NS 100ML 500 MG in PREMIXED 1 EACH IV SCH ×2 (21:12→22:00)
--- NOTE | 2021-11-15 21:30 | NUR ---
Patient continues to be non stop screaming. Needs assessed, occasionally asks for water. Hygiene care provided, 2 person max assist. Patient is kicking staff during care. IV dislodged on left FA, 3 attempts needed with 2 person assist to reinsert IV on right FA. Patient continues to be restless in bed, attempting to get out of bed. Frequent visual checks continued. Bilateral soft wrist restraints and mittens in place.
[2021-11-15] MEDS: CEFEPIME HCL 1 G in IV DEXTROSE 5% 50 ML IV SCH (21:53)
--- NOTE | 2021-11-15 22:00 | NUR ---
FLAGYL GIVEN AT 2111, 2199 DOSE NOT GIVEN PER ORDERS ARE EVERY 8 HOURS.
[2021-11-15] MEDS: DOXYCYCLINE HYCLATE IV 100 MG in IV DEXTROSE 5% 100 ML IV SCH (22:31)
[2021-11-15] MEDS: ZOLPIDEM 5 MG TABLET PO PRN (22:52)
[2021-11-16] MEDS: IV 1/2NS 1000 ML 1,000 ML IV PRN ×2 (01:07→10:59)
[2021-11-16] MEDS ORDERED: chlorproMAZINE 50 MG/2 ML AMPUL ONE ×2 (01:14→05:22)
[2021-11-16] MEDS: chlorproMAZINE 50 MG/2 ML AMPUL IM PRN ×4 (01:22→20:38)
--- NOTE | 2021-11-16 01:30 | NUR ---
Patient able to sleep about 2 hours post Ambien PO administration. Patient is now awake, restless. Patient is scratching and grabbing staff aggressively when mittens removed. He is striking at staff and kicking when hygiene care provided. Thorazine 50mg IM provided as ordered.
--- NOTE | 2021-11-16 03:45 | NUR ---
Patient is awake s/p thorazine 50mg IM injection, able to rest and sleep for 2 hours without screaming or restlessness. Patient is now thrashing in bed and yelling. Only able to ask for water, hygeine provided, and skin care checks to bilateral wrist restraints and mittens. Patient made comfortable in bed but continues to scream.
[2021-11-16 04:00] VITALS: BP 135/51
[2021-11-16 05:58] LABS: HEMATOCRIT 29.8 % (36.7-47.1); MEAN CORPUSCULAR VOLUME 86.8 fL (73.0-96.2); PLATELET COUNT (AUTO) 144 K/uL (152-348)
[2021-11-16 06:00] LABS: CREATININE 1.1 mg/dL (0.6-1.3); POTASSIUM 3.7 mmol/L (3.5-5.1)
[2021-11-16] MEDS: METRONIDAZOLE 500 MG/NS 100ML 500 MG in PREMIXED 1 EACH IV SCH ×3 (06:20→22:02)
[2021-11-16] MEDS: BLOOD SUGAR DIAGNOSTIC 1 EACH STRIP VI SCH ×4 (06:38→20:37)
[2021-11-16] MEDS: chlorproMAZINE 25 MG TABLET PO SCH ×3 (08:08→16:18)
[2021-11-16] MEDS: CLONAZEPAM 0.5 MG TABLET PO SCH ×3 (08:08→16:18)
[2021-11-16] MEDS: DIVALPROEX 250 MG TABLET.DR PO SCH ×3 (08:08→16:18)
[2021-11-16] MEDS: LINAGLIPTIN 5 MG TABLET PO SCH (08:08)
[2021-11-16] MEDS: INSULIN REGULAR, HUMAN 300 UNIT/3 ML VIAL SQ PRN ×2 (08:24→16:17)
[2021-11-16] MEDS: CEFEPIME HCL 1 G in IV DEXTROSE 5% 50 ML IV SCH ×2 (08:25→16:18)
[2021-11-16] MEDS: DOXYCYCLINE HYCLATE IV 100 MG in IV DEXTROSE 5% 100 ML IV SCH ×2 (08:25→20:21)
[2021-11-16 11:05] VITALS: BP 143/56
[2021-11-16 15:20] VITALS: BP 104/49
--- NOTE | 2021-11-16 15:25 | NUR ---
Pt.family was updated on the phone with pt.condition and plan of care.
[2021-11-16 20:50] VITALS: BP 143/70
[2021-11-16] MEDS: ZOLPIDEM 5 MG TABLET PO PRN (22:56)
[2021-11-17] MEDS: IV 1/2NS 1000 ML 1,000 ML IV PRN ×2 (01:57→13:55)
--- NOTE | 2021-11-17 04:00 | NUR ---
Glo effective at this time for sleep- patient slept about 4 hours.
[2021-11-17] MEDS: chlorproMAZINE 50 MG/2 ML AMPUL IM PRN ×2 (04:27→18:36)
[2021-11-17 04:53] VITALS: BP 148/72
--- NOTE | 2021-11-17 05:50 | NUR ---
Administered Thorazine IM at 0430 for severe agitation, screaming, thrashing, striking and kicking. Medication is ineffective at this time. Patient has no decrease in agitation. Mittens and wrist restraints in place. Hygiene, hydration, and low stimuli provided- ineffective.
--- NOTE | 2021-11-17 05:59 | NUR ---
Dr. Mackey made aware of patient condition with new orders for Thorazine 50mg IM times one and ativan 2mg times 1 in conjunction for severe agitation.
[2021-11-17] MEDS ORDERED: chlorproMAZINE 50 MG/2 ML AMPUL IM ONE (06:00)
[2021-11-17] MEDS ORDERED: LORAZEPAM 2 MG/1 ML VIAL IM PRN (06:00)
[2021-11-17] MEDS: METRONIDAZOLE 500 MG/NS 100ML 500 MG in PREMIXED 1 EACH IV SCH (06:18)
[2021-11-17 07:13] LABS: CREATININE 1.1 mg/dL (0.6-1.3); POTASSIUM 3.5 mmol/L (3.5-5.1)
[2021-11-17 07:23] LABS: HEMATOCRIT 30.6 % (36.7-47.1); MEAN CORPUSCULAR HEMOGLOBIN 30.4 uug (23.8-33.4); MEAN CORPUSCULAR VOLUME 87.5 fL (73.0-96.2); PLATELET COUNT (AUTO) 158 K/uL (152-348)
[2021-11-17] MEDS: BLOOD SUGAR DIAGNOSTIC 1 EACH STRIP VI SCH ×4 (07:31→20:12)
[2021-11-17] MEDS: INSULIN REGULAR, HUMAN 300 UNIT/3 ML VIAL SQ PRN ×3 (08:05→20:14)
[2021-11-17] MEDS: CLONAZEPAM 0.5 MG TABLET PO SCH ×4 (08:44→20:16)
[2021-11-17] MEDS: LINAGLIPTIN 5 MG TABLET PO SCH (08:45)
[2021-11-17] MEDS: chlorproMAZINE 25 MG TABLET PO SCH ×3 (08:45→17:42)
[2021-11-17] MEDS: DOXYCYCLINE HYCLATE IV 100 MG in IV DEXTROSE 5% 100 ML IV SCH ×2 (08:45→20:02)
[2021-11-17] MEDS: DIVALPROEX 250 MG TABLET.DR PO SCH ×3 (08:45→17:04)
[2021-11-17] MEDS: CEFEPIME HCL 1 G in IV DEXTROSE 5% 50 ML IV SCH (08:45)
[2021-11-17] MEDS: REMEDY ESSENTIAL ZINC PASTE 113 GM TP PRN (08:56)
--- NOTE | 2021-11-17 09:00 | NUR ---
RECEIVED PATIENT IN BED AWAKE VERY AGGRESSIVE RESTLESS COMBATIVE KICKING SCREAMING UNABLE TO RELATE NEEDS HE HAS BILATERAL WRIST RESTRAINTS AND MITTENS TO PREVENT FROM PULLING OUT TUBES PATIENT PULLING AND TUGGING CHECKED Q2H FOR ADEQUATE CIRCULATION CONFUSED AND DISORIENTED ON ROOM AIR WITH NO SOB CONTINUE ON ATB ORDERED WITH NO ADVERSE OR ALLERGIC REACTIONS AT THIS TIME MAX ASSIST FOR ADL WILL CONTINUE TO OBSERVE.
[2021-11-17 11:49] VITALS: BP 124/69
[2021-11-17] MEDS: METRONIDAZOLE 500 MG TABLET PO SCH ×2 (13:10→21:23)
--- NOTE | 2021-11-17 14:00 | NUR ---
PATIENT SLEEPS ON AND OFF STARTS TO SCREAM AND SHOUT AGITATED AND RESTLESS WHEN AWAKE ATTEMPTS TO REDIRECT AND MAKE COMFORTABLE IS ONGOING AT THIS TIME WILL CONTINUE TO OBSERVE AND PROVIDE SAFE AND THERAPEUTIC ENVIRONMENT AT ALL TIMES.
[2021-11-17] MEDS: CEFEPIME HCL 2 G in IV DEXTROSE 5% 100 ML IV SCH ×2 (14:31→21:23)
[2021-11-17 16:18] LABS: NEUTROPHILS % (MANUAL) 0 % (42-75)
[2021-11-17 16:29] VITALS: BP 131/52
--- NOTE | 2021-11-17 18:17 | NUR ---
DR HERNANDEZ HERE AND SEEN PATIENT WITH NEW ORDERS AND NOTED PATIENT CONTINUES TO BE AGITATED AND TALKING TO SELF HE COMPLIANT WITH MEDICATIONS BUT REFUSES TO EAT MD AWARE. CONTINUE TO REQUIRES RYLIE MITTENS AND WRIST RESTRAINTS HE IS SO CONFUSED AND PULLING ON TUBES AND ATTEMPTING TO GET OUT OF BED AT RISKS FOR FALL AND INJURY RELATED TO CONFUSSION AND POOR SAFETY AWARENESS WILL CONTINUE TO OBSERVE.
[2021-11-17] MEDS: REMEDY ESSENTIAL ZINC PASTE 113 GM TOP SCH (20:01)
--- NOTE | 2021-11-17 20:13 | NUR ---
Patient in bed confused with bilateral mittens and wrist restraints.Continue to screams and agitated.Re-assurance rendered,unable to redirect.Repositioned patient. Due meds given as ordered crushed with apple sauce.Called to verify Ativan ordered with new ordered received .Iv patent and intact on right AC 20g with IVF running well. Administered IV ATB .No a/r noted. Will continue to monitor.
[2021-11-17] MEDS: ZOLPIDEM 5 MG TABLET PO PRN (20:23)
[2021-11-17 20:37] VITALS: BP 120/53
--- NOTE | 2021-11-17 21:12 | NUR ---
Glo given with good result.Ativan 2mg took from omnicell.Wasted medication.Witness by RICA Galindo.Will continue to monitor.
[2021-11-18] MEDS: IV 1/2NS 1000 ML 1,000 ML IV PRN ×2 (01:07→12:24)
[2021-11-18 04:12] VITALS: BP 154/72
[2021-11-18] MEDS: CEFEPIME HCL 2 G in IV DEXTROSE 5% 100 ML IV SCH ×3 (05:44→22:19)
[2021-11-18] MEDS: METRONIDAZOLE 500 MG TABLET PO SCH ×3 (05:44→21:59)
--- NOTE | 2021-11-18 06:11 | NUR ---
Patient slept well throughout the night. No acute distress noted.HOB elevated. Continue safety measures. Incontinent to both B & B.Pericare provided.Patient started yelling and screaming loudly this morning after morning care done. All needs anticipated and met accordingly. Will endorse to oncoming shift.
[2021-11-18] MEDS: BLOOD SUGAR DIAGNOSTIC 1 EACH STRIP VI SCH ×4 (06:40→22:17)
[2021-11-18 06:57] LABS: MEAN CORPUSCULAR HEMOGLOBIN 29.3 uug (23.8-33.4); MEAN CORPUSCULAR VOLUME 86.6 fL (73.0-96.2); PLATELET COUNT (AUTO) 171 K/uL (152-348)
[2021-11-18 07:08] LABS: CREATININE 1.1 mg/dL (0.6-1.3); POTASSIUM 3.4 mmol/L (3.5-5.1)
[2021-11-18 07:10] LABS: NEUTROPHILS % (MANUAL) 0 % (42-75)
[2021-11-18] MEDS: LINAGLIPTIN 5 MG TABLET PO SCH (08:07)
[2021-11-18] MEDS: LORAZEPAM 2 MG/1 ML VIAL IM PRN (08:07)
[2021-11-18] MEDS: DIVALPROEX 250 MG TABLET.DR PO SCH ×3 (08:08→16:32)
[2021-11-18] MEDS: chlorproMAZINE 25 MG TABLET PO SCH ×4 (08:08→21:59)
[2021-11-18] MEDS: CLONAZEPAM 0.5 MG TABLET PO SCH ×4 (08:08→21:58)
--- NOTE | 2021-11-18 08:10 | NUR ---
RECEIVED IN BED VERY AGITATED VERY UNCOOPERATIVE COMBATIVE YELLING RESTLESS HAS MITTENS AND RYLIE WRIST RESTRAINTS TRASHING AROUND IN THE BED UNABLE TO REDIRECT MEDICATED WITH ATIVAN ORDERED MADE COMFORTABLE WILL CONTINUE TO OBSERVE.
[2021-11-18] MEDS: DOXYCYCLINE HYCLATE IV 100 MG in IV DEXTROSE 5% 100 ML IV SCH ×2 (08:16→21:52)
[2021-11-18] MEDS: REMEDY ESSENTIAL ZINC PASTE 113 GM TOP SCH ×2 (08:17→22:17)
[2021-11-18] MEDS ORDERED: chlorproMAZINE 25 MG TABLET PO SCH (09:00)
[2021-11-18] MEDS ORDERED: POTASSIUM CHLORIDE 20 MEQ POWDER PACKET PO ONE (09:15)
[2021-11-18] MEDS ORDERED: HALOPERIDOL LACTATE 5 MG/1 ML VIAL IM ONE (09:30)
--- NOTE | 2021-11-18 09:45 | NUR ---
DR MELVIN FRENCH HERE AND SEEN PATIENT WITH ORDER FOR HALDOL PATIENT CONTINUES TO BE AGITATED YELLING RESTLESS TRASHING IN BED MEDICATED WITH HALDOL ORDERED WILL CONTINUE TO OBSERVE.
[2021-11-18] MEDS: INSULIN REGULAR, HUMAN 300 UNIT/3 ML VIAL SQ PRN (11:16)
[2021-11-18 12:00] VITALS: BP 139/59
--- NOTE | 2021-11-18 13:52 | NUR ---
IV SITE VERY POSITIONAL D/C PLANNING PATIENT WILL BE DISCHARGED TO THE SNF AND WILL CONTINUE ON IV ATB ORDERED.
--- NOTE | 2021-11-18 14:23 | NUR ---
MID LINE INSERTED TO HIS RIGHT UPPER ARM GAUGE 18 PATIENT VERY UNCOOPERATIVE PULLING VERY RESTLESS COMBATIVE AND AGGRESSIVE VERY DIFFICULT REQUIRING BEING HELD DOWN FOR THE MIDLINE TO BE PLACED.AWAITING FOR ORDERS TO NEXT PLAN OF CARE.
[2021-11-18 16:00] VITALS: BP 134/63
--- NOTE | 2021-11-18 18:00 | NUR ---
PATIENT CONTINUES TO YELL AT TIMES WILL FALL ASLEEP AND THEN WAKES UP AND WILL START TO SCREAM ALL NEEDS ANTICIPATED AND SATISFIED CONTINUE TO REQUIRE MITTENS BILATERALLY AND WRIST RESTRAINTS PATIENT CONTINUES TO PULL VERY RESTLESS CIRCULATION CHECKED AND RELEASED Q2H AND REAPPLIED CONFUSED DISORIENTED BUT HE IS COMPLIANT WITH ALL HIS MEDICATIONS AT THIS TIME WILL CONTINUE TO OBSERVE AND PROVIDE SAFE AND THERAPEUTIC ENVIRONMENT AT ALL TIMES
[2021-11-18 20:28] VITALS: BP 148/60
--- NOTE | 2021-11-18 21:00 | NUR ---
PATIENT ASLEEP BUT AROUSABLE, NO SOB NO CHEST PAIN, ON OXYGEN 2LPM, SAT WNL, PATIENT TOOK ALL PO MEDICATIONS, TURN AND REPOSITION, KEPT CLEAN AND DRY, TX DONE ON SACRAL REDNESS, EXCORIATION. CONT ABX WITH NO ADVERSE REACTION NOTED. CONT TO MONITOR.
[2021-11-19] MEDS: ACETAMINOPHEN 325 MG TABLET PO PRN (02:21)
[2021-11-19] MEDS: ZOLPIDEM 5 MG TABLET PO PRN (02:21)
[2021-11-19] MEDS: IV 1/2NS 1000 ML 1,000 ML IV PRN (02:22)
--- NOTE | 2021-11-19 03:02 | NUR ---
Patient was asleep but arousable, but started yelling, unable to redirect the behavior, complaining of unable to sleep, given Ambien 5mg plus Tylenol 650mg for comfort and pain. Patient was turn reposition, tx done on sacral redness, excoriation, check wrist and mittens for placement and circulation, release the wrist restraints giving patient a break, but patient started thrashing makes sudden moves, risk for injury, and risk of pulling midline on left arm, frequent visual check done, given food, water, oral care done, cont to monitor.
[2021-11-19 04:00] VITALS: BP 131/56
[2021-11-19] MEDS: METRONIDAZOLE 500 MG TABLET PO SCH ×3 (05:46→22:10)
[2021-11-19] MEDS: CEFEPIME HCL 2 G in IV DEXTROSE 5% 100 ML IV SCH ×3 (05:46→22:45)
[2021-11-19] MEDS: BLOOD SUGAR DIAGNOSTIC 1 EACH STRIP VI SCH ×4 (06:01→22:05)
[2021-11-19 06:24] LABS: HEMATOCRIT 28.4 % (36.7-47.1); MEAN CORPUSCULAR HEMOGLOBIN 29.6 uug (23.8-33.4); MEAN CORPUSCULAR VOLUME 86.9 fL (73.0-96.2); PLATELET COUNT (AUTO) 181 K/uL (152-348)
[2021-11-19 06:40] LABS: CREATININE 0.9 mg/dL (0.6-1.3); MAGNESIUM 1.7 mg/dL (1.8-2.4); PHOSPHOROUS 2.8 mg/dL (2.5-4.9); POTASSIUM 3.8 mmol/L (3.5-5.1)
--- NOTE | 2021-11-19 07:01 | NUR ---
Patient has 4 hours of good sleep, but he sleep intermittently yelling, patient has many flights of ideas, and worries about things but unable to tell staff, kept clean dry and comfortable, checked mittens and wrist restraints for circulation and placement, tx continue on sacral redness. cont to monitor.
[2021-11-19] MEDS: DIVALPROEX 250 MG TABLET.DR PO SCH ×3 (09:44→17:30)
[2021-11-19] MEDS: LINAGLIPTIN 5 MG TABLET PO SCH (09:44)
[2021-11-19] MEDS: DOXYCYCLINE HYCLATE IV 100 MG in IV DEXTROSE 5% 100 ML IV SCH ×2 (09:45→20:49)
[2021-11-19] MEDS: REMEDY ESSENTIAL ZINC PASTE 113 GM TOP SCH ×2 (09:45→21:55)
[2021-11-19] MEDS: CLONAZEPAM 0.5 MG TABLET PO SCH ×4 (09:45→22:10)
[2021-11-19] MEDS: chlorproMAZINE 25 MG TABLET PO SCH ×3 (09:45→22:11)
[2021-11-19] MEDS ORDERED: MAGNESIUM OXIDE 400 MG TABLET PO ONE (10:00)
[2021-11-19 11:36] VITALS: BP 169/84
--- NOTE | 2021-11-19 13:33 | NUR ---
Pt is awake and alert, yells out consistently. Reoriented pt, provided needs and comfort measures. Mittens have been removed. Will continue to monitor pt.
[2021-11-19] MEDS: INSULIN REGULAR, HUMAN 300 UNIT/3 ML VIAL SQ PRN (14:19)
[2021-11-19 16:31] VITALS: BP 155/69
--- NOTE | 2021-11-19 19:00 | NUR ---
Right upper arm swelling noted. Venous doppler order obtained. discontinued IV fluids on that IV site, inserted new IV access on opposite extremity. Will continue to monitor.
[2021-11-19 20:46] VITALS: BP 164/45
[2021-11-20] MEDS: ZOLPIDEM 5 MG TABLET PO PRN (00:24)
[2021-11-20] MEDS: chlorproMAZINE 50 MG/2 ML AMPUL IM PRN ×2 (02:14→09:54)
[2021-11-20 04:00] VITALS: BP 165/79
--- NOTE | 2021-11-20 05:21 | NUR ---
Restless, most of night. Compliant with medications. Food and fluids were given. Yells out almost constantly. Attention seeking behaviors exhibited. Difficult to redirect.Resistive3 to care at times. PRN Ambien given at 0024, with no effect. PRN Thorazine 50 mg IV was given at 0214. He finally fell asleep around 4. No distress noted, at this time.
[2021-11-20] MEDS: CEFEPIME HCL 2 G in IV DEXTROSE 5% 100 ML IV SCH ×3 (05:51→22:08)
[2021-11-20] MEDS: METRONIDAZOLE 500 MG TABLET PO SCH ×3 (06:28→21:00)
[2021-11-20 06:37] LABS: CREATININE 0.9 mg/dL (0.6-1.3); POTASSIUM 3.3 mmol/L (3.5-5.1)
[2021-11-20] MEDS: BLOOD SUGAR DIAGNOSTIC 1 EACH STRIP VI SCH ×4 (06:44→20:48)
[2021-11-20] MEDS: DOXYCYCLINE HYCLATE IV 100 MG in IV DEXTROSE 5% 100 ML IV SCH ×2 (07:58→20:50)
[2021-11-20] MEDS: LINAGLIPTIN 5 MG TABLET PO SCH (08:41)
[2021-11-20] MEDS: CLONAZEPAM 0.5 MG TABLET PO SCH ×4 (08:41→20:49)
[2021-11-20] MEDS: DIVALPROEX 250 MG TABLET.DR PO SCH ×3 (08:41→16:45)
[2021-11-20] MEDS: REMEDY ESSENTIAL ZINC PASTE 113 GM TOP SCH ×2 (08:42→20:48)
[2021-11-20] MEDS: chlorproMAZINE 25 MG TABLET PO SCH ×4 (09:34→20:48)
[2021-11-20 09:38] VITALS: BP 106/71
[2021-11-20] MEDS: INSULIN REGULAR, HUMAN 300 UNIT/3 ML VIAL SQ PRN (11:24)
[2021-11-20] MEDS: IV 1/2NS 1000 ML 1,000 ML IV PRN (11:39)
[2021-11-20] MEDS: POTASSIUM CHLORIDE 50 ML IV SCH ×2 (11:39→12:35)
[2021-11-20] MEDS: LORAZEPAM 2 MG/1 ML VIAL IM PRN ×2 (11:39→16:42)
[2021-11-20 12:43] VITALS: BP 153/69
[2021-11-20 16:40] VITALS: BP 150/70
--- NOTE | 2021-11-20 18:08 | NUR ---
Patient was noted with restlessness at the start of the shift. PRN Thorazine given at 0954, still agitated, trying to get out of the bed, rolling in the bed, restless. Ativan given at 1139H and at 1642H. patient is relaxed. He is compliant with meds, High risk for fall. Mittens bilateral in place as ordered for safety, monitored and frequent checks for safety and circulation. No acute distress identified. Patient needs redirection at all times. safety measures maintained. all due meds given. all needs attended. Aspiration precaution maintained. will endorse to the next shift for continuity of care.
[2021-11-20 20:00] VITALS: BP 106/73
[2021-11-21] MEDS: IV 1/2NS 1000 ML 1,000 ML IV PRN (01:52)
[2021-11-21 04:15] VITALS: BP 143/70
--- NOTE | 2021-11-21 05:26 | NUR ---
Pt relaxing in bed, no distress noted. Denies pain or SOB. IV site intact. Safety maintained. B mittens in place with frequent checks. Will endorse to day shift.
[2021-11-21] MEDS: LORAZEPAM 2 MG/1 ML VIAL IM PRN (06:03)
[2021-11-21] MEDS: METRONIDAZOLE 500 MG TABLET PO SCH ×3 (06:06→21:33)
[2021-11-21] MEDS: CEFEPIME HCL 2 G in IV DEXTROSE 5% 100 ML IV SCH ×3 (06:07→21:31)
[2021-11-21] MEDS: BLOOD SUGAR DIAGNOSTIC 1 EACH STRIP VI SCH ×4 (06:38→21:31)
--- NOTE | 2021-11-21 06:46 | NUR ---
Pt began to get very restless and agitated, Ativan given. Tolerated well.
[2021-11-21] MEDS: DOXYCYCLINE HYCLATE IV 100 MG in IV DEXTROSE 5% 100 ML IV SCH ×2 (08:18→20:44)
[2021-11-21] MEDS: chlorproMAZINE 25 MG TABLET PO SCH ×4 (08:21→20:45)
[2021-11-21] MEDS: LINAGLIPTIN 5 MG TABLET PO SCH (08:21)
[2021-11-21] MEDS: CLONAZEPAM 0.5 MG TABLET PO SCH ×4 (08:21→20:45)
[2021-11-21] MEDS: REMEDY ESSENTIAL ZINC PASTE 113 GM TOP SCH ×2 (08:22→20:46)
[2021-11-21] MEDS: INSULIN REGULAR, HUMAN 300 UNIT/3 ML VIAL SQ PRN ×2 (08:25→17:28)
[2021-11-21] MEDS: DIVALPROEX 250 MG TABLET.DR PO SCH ×3 (08:40→16:30)
--- NOTE | 2021-11-21 10:00 | NUR ---
Received Pt very restlessness at the start of the shift turning /moving back and forth constantly mumble words . All schedule Meds given as per MD ordered, still agitated, trying to get out of the bed, rolling in the bed, restless. finally patient was able to relaxed and fall asleep. He is compliant with meds, IV on left hand was removed. AZAM mid line intact with NS 45% running at 90 ml /hr. High risk for fall. Mittens bilateral in place as ordered for safety, monitored and frequent checks for safety and circulation. No acute distress identified. Patient needs redirection at all times. safety measures maintained. all needs attended. Aspiration precaution maintained.
[2021-11-21 10:17] LABS: HEMATOCRIT 28.6 % (36.7-47.1); MEAN CORPUSCULAR HEMOGLOBIN 29.2 uug (23.8-33.4); MEAN CORPUSCULAR VOLUME 86.8 fL (73.0-96.2); PLATELET COUNT (AUTO) 252 K/uL (152-348)
[2021-11-21 10:36] LABS: CREATININE 0.8 mg/dL (0.6-1.3); POTASSIUM 3.2 mmol/L (3.5-5.1)
[2021-11-21 12:20] VITALS: BP 142/77
[2021-11-21] MEDS: ACETAMINOPHEN 325 MG TABLET PO PRN (16:30)
[2021-11-21 16:45] VITALS: BP 149/76
[2021-11-21] MEDS: chlorproMAZINE 50 MG/2 ML AMPUL IM PRN (18:25)
--- NOTE | 2021-11-21 18:30 | NUR ---
Pt noted with increase episodes of agitation and restlessness medicated with Thorazine 2 ml IM as per MD ordered with minimal effect received labs results with Potassium level of 3.2 notified [facility] [employer] Pernell with new order for KCL 10 MEQ 50 ml. Order noted and carried out
[2021-11-21] MEDS: POTASSIUM CHLORIDE 50 ML IV SCH ×4 (18:34→21:31)
[2021-11-21 20:43] VITALS: BP 160/70
[2021-11-22] MEDS: LORAZEPAM 2 MG/1 ML VIAL IM PRN ×2 (04:42→11:40)
[2021-11-22 04:43] VITALS: BP 162/68
--- NOTE | 2021-11-22 05:20 | NUR ---
Pt on and off restless throughout the night. All medications given tolerated well. No distress noted. Safety maintained throughout shift. Bilateral mittens on for safety, visual checks done. Will endorse to day shift.
[2021-11-22] MEDS: METRONIDAZOLE 500 MG TABLET PO SCH ×2 (06:22→13:35)
[2021-11-22] MEDS: CEFEPIME HCL 2 G in IV DEXTROSE 5% 100 ML IV SCH ×2 (06:23→13:31)
[2021-11-22 06:40] LABS: HEMATOCRIT 32.7 % (36.7-47.1); MEAN CORPUSCULAR HEMOGLOBIN 28.7 uug (23.8-33.4); MEAN CORPUSCULAR VOLUME 87.1 fL (73.0-96.2); PLATELET COUNT (AUTO) 283 K/uL (152-348)
[2021-11-22 06:58] LABS: CREATININE 0.8 mg/dL (0.6-1.3); PHOSPHOROUS 2.9 mg/dL (2.5-4.9); POTASSIUM 3.8 mmol/L (3.5-5.1)
[2021-11-22] MEDS: BLOOD SUGAR DIAGNOSTIC 1 EACH STRIP VI SCH ×4 (07:00→22:17)
[2021-11-22] MEDS: CLONAZEPAM 0.5 MG TABLET PO SCH ×4 (08:29→22:11)
[2021-11-22] MEDS: LINAGLIPTIN 5 MG TABLET PO SCH (08:29)
[2021-11-22] MEDS: chlorproMAZINE 25 MG TABLET PO SCH ×4 (08:29→22:41)
[2021-11-22] MEDS: DOXYCYCLINE HYCLATE IV 100 MG in IV DEXTROSE 5% 100 ML IV SCH (08:29)
[2021-11-22] MEDS: DIVALPROEX 250 MG TABLET.DR PO SCH ×3 (08:29→17:02)
[2021-11-22] MEDS: INSULIN REGULAR, HUMAN 300 UNIT/3 ML VIAL SQ PRN ×2 (08:50→11:46)
[2021-11-22] MEDS: REMEDY ESSENTIAL ZINC PASTE 113 GM TOP SCH ×2 (08:51→22:42)
[2021-11-22] MEDS: ACETAMINOPHEN 325 MG TABLET PO PRN ×2 (09:45→17:06)
[2021-11-22 11:50] VITALS: BP 153/93
[2021-11-22 16:17] VITALS: BP 142/69
--- NOTE | 2021-11-22 19:42 | NUR ---
bladder scan 297, at this time.
[2021-11-22 20:30] VITALS: BP 144/75
[2021-11-22] MEDS ORDERED: PIPERACILLIN SODIUM/TAZOBACTAM 3.375 G in IV DEXTROSE 5% 50 ML IV SCH (22:00)
[2021-11-22] MEDS: PIPERACILLIN SODIUM/TAZOBACTAM 3.375 G in IV DEXTROSE 5% 100 ML IV SCH (22:19)
[2021-11-22] MEDS: IV 1/2NS 1000 ML 1,000 ML IV PRN (22:48)
--- NOTE | 2021-11-23 02:55 | NUR ---
BLADDER SCAN 200, NO BLADDER DISTENTION
[2021-11-23 04:35] VITALS: BP 148/83
--- NOTE | 2021-11-23 05:56 | NUR ---
REPOSITIONED FOR COMFORT, MIDLINE ON RIGHT UPPER ARM PATENT AND INTACT.IV ATB ZOSYN ADMINISTERED.
[2021-11-23] MEDS: PIPERACILLIN SODIUM/TAZOBACTAM 3.375 G in IV DEXTROSE 5% 100 ML IV SCH ×3 (06:32→21:15)
[2021-11-23] MEDS: BLOOD SUGAR DIAGNOSTIC 1 EACH STRIP VI SCH ×4 (06:40→20:36)
[2021-11-23 07:05] LABS: HEMATOCRIT 29.3 % (36.7-47.1); MEAN CORPUSCULAR HEMOGLOBIN 29.6 uug (23.8-33.4); PLATELET COUNT (AUTO) 310 K/uL (152-348)
[2021-11-23 07:13] LABS: CREATININE 0.8 mg/dL (0.6-1.3); MAGNESIUM 1.9 mg/dL (1.8-2.4); PHOSPHOROUS 2.6 mg/dL (2.5-4.9); POTASSIUM 3.4 mmol/L (3.5-5.1)
[2021-11-23] MEDS: chlorproMAZINE 25 MG TABLET PO SCH ×4 (08:49→20:22)
[2021-11-23] MEDS: DIVALPROEX 250 MG TABLET.DR PO SCH ×3 (08:50→16:31)
[2021-11-23] MEDS: LINAGLIPTIN 5 MG TABLET PO SCH (08:50)
[2021-11-23] MEDS: CLONAZEPAM 0.5 MG TABLET PO SCH ×4 (08:51→20:22)
[2021-11-23] MEDS: REMEDY ESSENTIAL ZINC PASTE 113 GM TOP SCH ×2 (08:51→20:37)
[2021-11-23] MEDS: INSULIN REGULAR, HUMAN 300 UNIT/3 ML VIAL SQ PRN ×2 (08:54→11:42)
[2021-11-23 11:10] VITALS: BP 127/70
[2021-11-23] MEDS ORDERED: POTASSIUM CHLORIDE 20 MEQ POWDER PACKET PO ONE (12:30)
[2021-11-23] MEDS: ACETAMINOPHEN 325 MG TABLET PO PRN (12:54)
[2021-11-23 16:24] VITALS: BP 151/73
--- NOTE | 2021-11-23 18:10 | NUR ---
bladder scan completed noted with 600 residual, In n out completed per order.
[2021-11-23] MEDS: IV 1/2NS 1000 ML 1,000 ML IV PRN (21:29)
[2021-11-24 04:18] VITALS: BP 139/83
[2021-11-24] MEDS: PIPERACILLIN SODIUM/TAZOBACTAM 3.375 G in IV DEXTROSE 5% 100 ML IV SCH ×3 (06:05→22:07)
[2021-11-24] MEDS: BLOOD SUGAR DIAGNOSTIC 1 EACH STRIP VI SCH ×4 (06:06→20:58)
--- NOTE | 2021-11-24 06:06 | NUR ---
Pt rested well overnight slept 8 hours; pt soaked his diaper; bladder scanner 0; safety maintained; continue to monitor.
[2021-11-24 06:56] LABS: HEMATOCRIT 30.8 % (36.7-47.1); MEAN CORPUSCULAR HEMOGLOBIN 29.1 uug (23.8-33.4); MEAN CORPUSCULAR VOLUME 87.2 fL (73.0-96.2); PLATELET COUNT (AUTO) 351 K/uL (152-348)
[2021-11-24 07:09] LABS: CREATININE 0.8 mg/dL (0.6-1.3); MAGNESIUM 1.9 mg/dL (1.8-2.4); PHOSPHOROUS 2.8 mg/dL (2.5-4.9); POTASSIUM 3.8 mmol/L (3.5-5.1)
[2021-11-24] MEDS: IV 1/2NS 1000 ML 1,000 ML IV PRN (07:58)
[2021-11-24] MEDS: LINAGLIPTIN 5 MG TABLET PO SCH (08:13)
[2021-11-24] MEDS: DIVALPROEX 250 MG TABLET.DR PO SCH ×3 (08:13→16:44)
[2021-11-24] MEDS: chlorproMAZINE 25 MG TABLET PO SCH ×4 (08:13→20:58)
[2021-11-24] MEDS: CLONAZEPAM 0.5 MG TABLET PO SCH ×4 (08:13→20:58)
[2021-11-24] MEDS: REMEDY ESSENTIAL ZINC PASTE 113 GM TOP SCH ×2 (08:13→20:29)
[2021-11-24] MEDS: INSULIN REGULAR, HUMAN 300 UNIT/3 ML VIAL SQ PRN (08:14)
[2021-11-24] MEDS ORDERED: IV D5W 1000ML 1,000 ML IV PRN (11:15)
[2021-11-24 11:26] VITALS: BP 133/58
[2021-11-24] MEDS: ACETAMINOPHEN 325 MG TABLET PO PRN (12:28)
[2021-11-24] MEDS: TAMSULOSIN HCL 0.4 MG CAP.SR.24H PO SCH ×2 (13:00→20:58)
--- NOTE | 2021-11-24 13:00 | NUR ---
bladder scan completed noted with 389, in n out per order output of 600 noted.
[2021-11-24 16:34] VITALS: BP 134/94
--- NOTE | 2021-11-24 18:49 | NUR ---
patients mother Tiffanie called regarding patients phone and keys, informed mother that upon admission patient did not have keys or cell phone in his possession. per Tiffanie (mother) [facility]
[2021-11-24 20:12] VITALS: BP 149/76
--- NOTE | 2021-11-24 21:00 | NUR ---
PATIENT ASLEEP IN BED. UNABLE TO TAKE HS MEDICATIONS AT THIS TIME. PATIENT IS VERY LETHARGIC AND NOT AWAKE ENOUGH TO TAKE MEDICATIONS. PATIENT SCANNED AND NO RETENTION NOTED. PATIENT VOIDED IN DIAPER. WILL CONTINUE TO MONITOR AND ASSESS.
[2021-11-25 04:18] VITALS: BP 140/65
[2021-11-25] MEDS: PIPERACILLIN SODIUM/TAZOBACTAM 3.375 G in IV DEXTROSE 5% 100 ML IV SCH ×3 (05:25→21:41)
[2021-11-25] MEDS: BLOOD SUGAR DIAGNOSTIC 1 EACH STRIP VI SCH ×4 (06:33→22:45)
[2021-11-25 06:36] LABS: HEMATOCRIT 31.7 % (36.7-47.1); MEAN CORPUSCULAR HEMOGLOBIN 29.6 uug (23.8-33.4); MEAN CORPUSCULAR VOLUME 86.7 fL (73.0-96.2); PLATELET COUNT (AUTO) 353 K/uL (152-348)
[2021-11-25 06:57] LABS: CREATININE 0.9 mg/dL (0.6-1.3); MAGNESIUM 1.9 mg/dL (1.8-2.4); POTASSIUM 3.5 mmol/L (3.5-5.1)
[2021-11-25] MEDS: REMEDY ESSENTIAL ZINC PASTE 113 GM TOP SCH ×2 (08:18→21:00)
[2021-11-25] MEDS: CLONAZEPAM 0.5 MG TABLET PO SCH ×4 (09:32→22:33)
[2021-11-25] MEDS: chlorproMAZINE 25 MG TABLET PO SCH ×4 (09:32→22:34)
[2021-11-25] MEDS: DIVALPROEX 250 MG TABLET.DR PO SCH ×3 (09:32→16:52)
[2021-11-25] MEDS: LINAGLIPTIN 5 MG TABLET PO SCH (09:32)
[2021-11-25 11:50] VITALS: BP 141/66
[2021-11-25] MEDS: INSULIN REGULAR, HUMAN 300 UNIT/3 ML VIAL SQ PRN ×2 (12:22→22:50)
--- NOTE | 2021-11-25 13:37 | NUR ---
Pt is awake, yells out at times. pt is confused and repeats himself, destructive behavior. Pt is compliant with medications. Pending placement for discharge. Plan is to be placed in SNF. Comfort measures provided, call light within reach.
[2021-11-25] MEDS ORDERED: TAMS-3 PO (14:08)
[2021-11-25] MEDS ORDERED: CHLO25TA13 PO (14:08)
[2021-11-25] MEDS ORDERED: DIVA250T4 PO (14:08)
[2021-11-25] MEDS ORDERED: CHLO25AM IM (14:08)
[2021-11-25] MEDS ORDERED: AMOX-430 PO (14:08)
[2021-11-25] MEDS ORDERED: CLON0.5T4 PO (14:08)
[2021-11-25 16:32] VITALS: BP 160/75
--- NOTE | 2021-11-25 18:47 | NUR ---
Pt's bladder scan is 130cc, does not exceed 200cc. Pt urinated several times during shift.
[2021-11-25 20:12] VITALS: BP 155/84
[2021-11-25] MEDS: TAMSULOSIN HCL 0.4 MG CAP.SR.24H PO SCH (22:33)
[2021-11-26] MEDS: chlorproMAZINE 50 MG/2 ML AMPUL IM PRN (00:23)
[2021-11-26 05:10] VITALS: BP 126/75
[2021-11-26] MEDS: PIPERACILLIN SODIUM/TAZOBACTAM 3.375 G in IV DEXTROSE 5% 100 ML IV SCH (05:37)
--- NOTE | 2021-11-26 05:54 | NUR ---
Received to care, lying in bed, yelling incessantly, difficult to redirect. PO fluids and snacks were given. Remains on soft wrist restraints and mittens, for his safety, and prevention of pulling iv tubing, out. Midline IV to RUE remains patent. Aggressive with staff when care is rendered. Compliant with medications. PRN Thorazine 50 MG IV given at 0023 to left gluteal region for increasing agitation. He calmed down, and went to sleep, after an hour, or two. As of now, he continues to sleep. No distress, noted.
[2021-11-26] MEDS: BLOOD SUGAR DIAGNOSTIC 1 EACH STRIP VI SCH ×2 (06:32→11:56)
--- NOTE | 2021-11-26 08:05 | NUR ---
Arrived to patient sleeping in bed. Patient having a history of agitation resulting in patient placed in restraints in past. IV site intact and patent. Bed left in lowest position. Will continue to monitor patient throughout shift.
[2021-11-26] MEDS: DIVALPROEX 250 MG TABLET.DR PO SCH ×2 (08:51→12:49)
[2021-11-26] MEDS: CLONAZEPAM 0.5 MG TABLET PO SCH ×2 (08:51→12:49)
[2021-11-26] MEDS: LINAGLIPTIN 5 MG TABLET PO SCH (08:51)
[2021-11-26] MEDS: REMEDY ESSENTIAL ZINC PASTE 113 GM TOP SCH (08:52)
[2021-11-26] MEDS: chlorproMAZINE 25 MG TABLET PO SCH ×2 (08:52→12:49)
[2021-11-26 12:02] VITALS: BP 114/68
[2021-11-26] MEDS: LORAZEPAM 2 MG/1 ML VIAL IM PRN (13:34)
--- NOTE | 2021-11-26 14:42 | NUR ---
Patient discharged from unit. Patient going to [facility]. Awaiting return call from facility regarding report. Numerous attempts and facility stating they will call me back. IV site removed. ID badge removed.
--- NOTE | 2021-11-26 14:54 | NUR ---
Report given to [facility] heller [facility].
== END 2021-11-26 14:40 | DRG 871 ==
LOC: MEDSURG3 14:55 → TELE3 15:31 → MEDSURG3 11-13 08:00
PROVIDERS: ADMIT Nurse Practitioner Acute Care; ATTEND Registered Nurse
PROC: 05H533Z Insertion of Infusion Device into Right Subclavian Vein, Percutaneous Approach (ICD-10-PCS; principal; 2021-11-18)
PROC: B546ZZA Ultrasonography of Right Subclavian Vein, Guidance (ICD-10-PCS; 2021-11-18)
PROC: 05H533Z Insertion of Infusion Device into Right Subclavian Vein, Percutaneous Approach (ICD-10-PCS; 2021-11-20)
PROC: B546ZZA Ultrasonography of Right Subclavian Vein, Guidance (ICD-10-PCS; 2021-11-20)
DX: A41.9 Sepsis, unspecified organism (principal); J69.0 Pneumonitis due to inhalation of food and vomit; N17.0 Acute kidney failure with tubular necrosis; G93.41 Metabolic encephalopathy; J96.01 Acute respiratory failure with hypoxia; E87.0 Hyperosmolality and hypernatremia; F84.0 Autistic disorder; N39.0 Urinary tract infection, site not specified; F20.9 Schizophrenia, unspecified; E11.9 Type 2 diabetes mellitus without complications; F41.9 Anxiety disorder, unspecified; I10 Essential (primary) hypertension; F42.9 Obsessive-compulsive disorder, unspecified; F29 Unspecified psychosis not due to a substance or known physiological condition; R62.7 Adult failure to thrive; Z68.23 Body mass index [BMI] 23.0-23.9, adult; F39 Unspecified mood [affective] disorder; R33.9 Retention of urine, unspecified; Z79.84 Long term (current) use of oral hypoglycemic drugs
CPT/HCPCS: 36415; 70030-TC; 71045; 80164; 83735; 84100; 85025; 87040; 87086; 93005; 97161; A4663; A6209; A6213; C1758; G0378; J0692; J0696; J1200; J1630; J1815; J2060; J2405; J2543; J3230; J3480; J3490; Q0161